=== PATIENT | male | born 1970 | race American Indian/Alaskan Native ===

== ENCOUNTER 2017-06-09 05:44 | Emergency (ER) | payer MEDICARE ==
[2017-06-09 05:56] VITALS: BMI 26.4
[2017-06-09 06:07] VITALS: RESP 18; TEMP 99
[2017-06-09] MEDS ORDERED: Morphine 4 mg/ml ISec IVP STA (06:11)
[2017-06-09] MEDS ORDERED: Sodium Chloride 0.9% 1,000 ML IV STA (06:11)
--- NOTE | 2017-06-09 06:15 | ED PDOC ---
Arrival/HPI - General Chief Complaint: Abdominal Pain Time Seen by Provider: 06/09/17 05:51 - History of Present Illness Narrative History of Present Illness (Text): 06/09/17 06:12 46 yo male, presents with abdominal pain, vomiting since last night. pt states pain is diffuse on right side. no fever, no cp, urinary changes, hematuria. pt poor historian. pt reports has "been constipated" and "difficulty passing gas" Past Medical History - Infectious Disease Hx of Infectious Diseases: None - Cardiac Hx Cardiac Disorders: No - Pulmonary Hx Respiratory Disorders: No - Neurological Hx Neurological Disorder: Yes Hx Dizziness: Yes - HEENT Hx HEENT Disorder: No - Renal Hx Renal Disorder: Yes Hx Kidney Stones: Yes - Endocrine/Metabolic Hx Endocrine Disorders: No - Hematological/Oncological Hx Blood Disorders: No - Integumentary Hx Dermatological Disorder: No - Musculoskeletal/Rheumatological Hx Musculoskeletal Disorders: No Hx Back Pain: Yes Hx Falls: No Hx Unsteady Gait: No - Gastrointestinal Hx Nausea: Yes - Genitourinary/Gynecological Hx Genitourinary Disorders: No - Psychiatric Hx Psychophysiologic Disorder: No Hx Substance Use: No - Surgical History Hx Orthopedic Surgery: Yes - Anesthesia Hx Anesthesia: Yes Hx Anesthesia Reactions: No Hx Malignant Hyperthermia: No Family/Social History - Physician Review Nursing Documentation Reviewed: Yes Family/Social History: Unknown Family HX Smoking Status: Never Smoked Hx Alcohol Use: No Hx Substance Use: No Allergies/Home Meds Allergies/Adverse Reactions: Allergies No Known Allergies Allergy (Verified 06/09/17 05:55) Home Medications: Home Meds Medication Instructions Recorded Confirmed Paroxetine HCl [Paxil] 1 tab PO DAILY 12/25/16 12/25/16 oxyCODONE [oxyCONTIN Extended 1 tab PO DAILY 12/25/16 12/25/16 Release Tab] Review of Systems - Review of Systems Constitutional: Normal Eyes: Normal ENT: Normal Respiratory: Normal Cardiovascular: Normal Gastrointestinal: Abdominal Pain, Nausea, Vomiting Genitourinary Male: Normal Musculoskeletal: Normal Skin: Normal Neurological: Normal Endocrine: Normal Hemo/Lymphatic: Normal Psychiatric: Normal Physical Exam Vital Signs Temp Pulse Resp BP Pulse Ox 06/09/17 09:00 99.0 F 91 H 18 124/80 99 06/09/17 07:36 95 H 18 112/75 97 06/09/17 06:07 99.0 F 92 H 18 136/87 100 Temperature: Afebrile Blood Pressure: Normal Pulse: Regular Respiratory Rate: Normal Appearance: Positive for: Well-Appearing, Non-Toxic, Comfortable, Other ( uncomfortable from pain) Pain Distress: None Mental Status: Positive for: Alert and Oriented X 3 - Systems Exam Head: Present: Atraumatic, Normocephalic Pupils: Present: PERRL Extroacular Muscles: Present: EOMI Conjunctiva: Present: Normal Mouth: Present: Moist Mucous Membranes Neck: Present: Normal Range of Motion Respiratory/Chest: Present: Clear to Auscultation, Good Air Exchange. No: Respiratory Distress, Accessory Muscle Use Cardiovascular: Present: Regular Rate and Rhythm, Normal S1, S2. No: Murmurs Abdomen: Present: Tenderness (right sided). No: Distention, Peritoneal Signs, Rebound, Guarding Back: Present: Normal Inspection Upper Extremity: Present: Normal Inspection. No: Cyanosis, Edema Lower Extremity: Present: Normal Inspection. No: Edema Neurological: Present: GCS=15, CN II-XII Intact, Speech Normal Skin: Present: Warm, Dry, Normal Color. No: Rashes Psychiatric: Present: Alert, Oriented x 3, Normal Insight, Normal Concentration Medical Decision Making ED Course and Treatment: 06/09/17 06:18 consider renal colic vs appendcitis vs obstruction - labs imaging pending. 06/09/17 06:50 pt endorsed pending results of imaging, urine, reassessment, and final dispo. - Lab Interpretations Lab Results: 06/09/17 06:24 06/09/17 06:24 Lab Results 06/09/17 09:00: Urine Color Yellow, Urine Appearance Sl cloudy, Urine pH 6.0, Ur Specific [place] 1.015, Urine Protein 30 H, Urine Glucose (UA) Negative, Urine Ketones 15 H, Urine Blood Large H, Urine Nitrate Negative, Urine Bilirubin Negative, Urine Urobilinogen 0.2, Ur Leukocyte Esterase Negative, Urine RBC Tntc, Urine WBC 0 - 2, Ur Epithelial Cells 0 - 2, Calcium Oxalate Crystal Few, Urine Bacteria Small 06/09/17 06:24: Sodium 143, Potassium 3.9, Chloride 106, Carbon Dioxide 25, Anion Gap 16, BUN 15, Creatinine 1.3, Est GFR ( Amer) > 60, Est GFR (Non- Af Amer) 59, Random Glucose 158 H, Calcium 9.5, Total Bilirubin 0.4, AST 22, ALT 25, Alkaline Phosphatase 151 H D, Total Protein 7.6, Albumin 3.9, Globulin 3.7, Albumin/Globulin Ratio 1.0 L, Lipase 130 06/09/17 06:24: PT 12.6 H, INR 1.09 H, APTT 31.7 06/09/17 06:24: WBC 10.4, RBC 4.73, Hgb 14.1, Hct 41.4 L, MCV 87.5 D, MCH 29.8 , MCHC 34.1, RDW 13.7, Plt Count 269, MPV 8.9, Gran % 49.3 L, Lymph % (Auto) 38.6 H, [place] % (Auto) 8.9 H, Eos % (Auto) 2.8, Baso % (Auto) 0.4, Gran # 5.14, Lymph # (Auto) 4.0 H, [place] # (Auto) 0.9 H, Eos # (Auto) 0.3, Baso # (Auto) 0.04 - RAD Interpretation Radiology Orders: 06/09/17 06:32 ABD & PELVIS IV CONTRAST ONLY [CT] Stat - Medication Orders Current Medication Orders: Discontinued Medications Sodium Chloride (Sodium Chloride 0.9%) 1,000 mls @ 1,000 mls/hr IV .Q1H STA Stop: 06/09/17 07:10 Last Admin: 06/09/17 06:26 Dose: 1,000 mls/hr eMAR Start Stop Document 06/09/17 06:26 RG (Rec: 06/09/17 06:34 RG [id number]) Intravenous Solution Start Date 06/09/17 Start Time 06:26 Ketorolac Tromethamine (Toradol) 30 mg IVP STAT STA Stop: 06/09/17 06:44 Last Admin: 06/09/17 06:49 Dose: 30 mg MAR Pain Assessment Document 06/09/17 06:49 RG (Rec: 06/09/17 06:52 RG [id number]) Pain Reassessment Is this a pain reassessment? Yes Sleep Is patient sleeping during reassessment? No Presence of Pain Presence of Pain Yes Pain Scale Used Pain Scale Used Numeric Location Left, Right or Bilateral Right Pain Location Body Site Abdomen Description Description Constant Intensity of Pain at present 10 Pain Behavior Moaning Irritability Facial Grimacing Screaming IVP Administration Document 06/09/17 06:49 RG (Rec: 06/09/17 06:52 RG [id number]) Charges for Administration # of IVP Administrations 1 Morphine Sulfate (Morphine) 4 mg IVP STAT STA Stop: 06/09/17 06:12 Last Admin: 06/09/17 06:25 Dose: 4 mg MAR Pain Assessment Document 06/09/17 06:25 RG (Rec: 06/09/17 06:34 RG [id number]) Pain Reassessment Is this a pain reassessment? Yes Sleep Is patient sleeping during reassessment? No Presence of Pain Presence of Pain Yes Location Left, Right or Bilateral Right Pain Location Body Site Abdomen Description Description Constant Intensity of Pain at present 7 Pain Behavior Moaning Rubbing Site Aggravating Factors Contant IVP Administration Document 06/09/17 06:25 RG (Rec: 06/09/17 06:34 RG [id number]) Charges for Administration # of IVP Administrations 1 Morphine Sulfate (Morphine) 6 mg IVP STAT STA Stop: 06/09/17 09:07 Last Admin: 06/09/17 10:08 Dose: 6 mg MAR Pain Assessment Document 06/09/17 10:08 LA (Rec: 06/09/17 10:09 LA [id number]) Pain Reassessment Is this a pain reassessment? No Sleep Is patient sleeping during reassessment? No Presence of Pain Presence of Pain Yes Pain Scale Used Pain Scale Used Numeric Location Left, Right or Bilateral Right Pain Location Body Site Abdomen Description Description Constant Acceptable Level of Pain 7 IVP Administration Document 06/09/17 10:08 LA (Rec: 06/09/17 10:09 LA [id number]) Charges for Administration # of IVP Administrations 1 Ondansetron HCl (Zofran Inj) 4 mg IVP STAT STA Stop: 06/09/17 06:12 Last Admin: 06/09/17 06:25 Dose: 4 mg IVP Administration Document 06/09/17 06:25 RG (Rec: 06/09/17 06:34 RG [id number]) Charges for Administration # of IVP Administrations 1 Ondansetron HCl (Zofran Inj) 4 mg IVP STAT STA Stop: 06/09/17 09:07 Last Admin: 06/09/17 10:02 Dose: 4 mg IVP Administration Document 06/09/17 10:02 LA (Rec: 06/09/17 10:02 LA [id number]) Charges for Administration # of IVP Administrations 1 Oxycodone/Acetaminophen (Percocet 5/325 Mg Tab) 1 tab PO STAT STA Stop: 06/09/17 10:04 Last Admin: 06/09/17 10:21 Dose: 1 tab MAR Pain Assessment Document 06/09/17 10:21 [facility] [place]: 06/09/17 10:21 [facility] [place] [id number][place] Pain Reassessment Is this a pain reassessment? Yes Sleep Is patient sleeping during reassessment? No Presence of Pain Presence of Pain Yes Pain Scale Used Pain Scale Used Numeric Location Pain Location Body Site Abdomen Description Intensity of Pain at present 8 Tamsulosin HCl (Flomax) 0.4 mg PO STAT STA Stop: 06/09/17 09:08 Last Admin: 06/09/17 10:02 Dose: 0.4 mg Disposition/Present on Arrival - Present on Arrival Any Indicators Present on Arrival: No History of DVT/PE: No History of Uncontrolled Diabetes: No Urinary Catheter: No History of Decub. Ulcer: No History Surgical Site Infection Following: None - Disposition Have Diagnosis and Disposition been Completed?: Yes Diagnosis: Kidney stone Disposition: HOME/ ROUTINE Disposition Time: 07:00 Condition: IMPROVED Additional Instructions: Mr Hurt, thank you for letting us take care of you today. Your provider was Dr. Last. You were treated for Kindey Stone. The emergency medical care you received today was directed at your acute symptoms. If you were prescribed any medication, please fill it and take as directed. It may take several days for your symptoms to resolve. Return to the Emergency Department if your symptoms worsen, do not improve, or if you have any other problems. Make sure you follow up with 1. your primary care doctor, Dr. Fuentes, in [place] in 1-2days 2. Urologist Dr. Hernandez or your own Urologist. 3. GI (gastrointestinal doctor) Dr. Barr for the suspicion of colon mass Please contact your doctor or call one of the physicians/clinics you have been referred to that are listed on the Patient Visit Information form that is included in your discharge packet. Bring any paperwork you were given at discharge with you along with any medications you are taking to your follow up visit. Our treatment cannot replace ongoing medical care by a primary care provider (PCP) outside of the emergency department. Thank you for allowing the [facility] team to be part of your care today. If you had an X-Ray or CT scan: A Radiologist will review the ED reading if any change in treatment is needed we will contact you. If you had a blood, urine, or wound culture: It will take several days for the results, if any change in treatment is needed we will contact you. If you had an STI test: It will take 48 hours for the results. Please call after 1 week if you have not heard back. Prescriptions: Docusate [Colace] 100 mg PO BID #60 cap Ibuprofen [Motrin] 600 mg PO Q6 PRN #30 tab PRN Reason: Pain, Moderate (4-7) oxyCODONE/Acetaminophen [Percocet 5/325 mg Tab] 1 ea PO Q4 PRN #20 tab PRN Reason: Pain, Moderate (4-7) Tamsulosin [Flomax] 0.4 mg PO DAILY #20 cap Referrals: Nino Hernandez MD [Staff Provider] - Follow up with primary Edvin Barr MD [Staff Provider] - Follow up with primary Forms: [employer] (Grenadian), WORK NOTE
[2017-06-09 06:36] LABS: BASO # 0.04 K/mm3 (0.0-2.0); BASO % 0.4 % (0.0-3.0); EOS # 0.3 (0.0-0.7); EOS % 2.8 % (1.5-5.0); GRAN # 5.14 (1.4-6.5); GRAN % 49.3 % (50.0-68.0); HEMOGLOBIN 14.1 g/dL (14.0-18.0); LYMPH % 38.6 % (22.0-35.0); MEAN CORPUSCULAR HEMOGLOBIN 29.8 pg (25.0-35.0); MEAN CORPUSCULAR HGB CONC 34.1 g/dl (31.0-37.0); MEAN PLATELET VOLUME 8.9 fl (7.0-11.0); MONO # 0.9 (0.1-0.6); MONO % 8.9 % (1.0-6.0); RBC 4.73 10^6/uL (3.5-6.1); RED CELL DISTRIBUTION WIDTH 13.7 % (11.5-14.5); WHITE BLOOD COUNT 10.4 10^3/ul (4.5-11.0)
[2017-06-09 06:47] LABS: ALBUMIN 3.9 g/dL (3.0-4.8); ALT/SGPT 25 U/L (7-56); AST/SGOT 22 U/L (17-59); BLOOD UREA NITROGEN 15 mg/dL (7-21); CALCIUM 9.5 mg/dL (8.4-10.5); GFR AFRICAN-AMERICAN > 60; GFR NON-AFRICAN AMERICAN 59; LIPASE 130 U/L (23-300)
[2017-06-09 06:49] LABS: MEAN CELL VOLUME 87.5 fl (80.0-105.0)
[2017-06-09 06:55] LABS: INR 1.09 (0.93-1.08); PROTHROMBIN TIME 12.6 SECONDS (9.4-12.5)
[2017-06-09] MEDS ORDERED: Iohexol 350 MG/100 ML VIAL ONE (07:00)
[2017-06-09 07:05] LABS: PARTIAL THROMBOPLASTIN TIME 31.7 Seconds (25.1-36.5)
--- NOTE | 2017-06-09 07:28 | ED PDOC ---
Physical Exam Vital Signs Reviewed: Yes Vital Signs Temp Pulse Resp BP Pulse Ox 06/09/17 07:36 95 H 18 112/75 97 06/09/17 06:07 99.0 F 92 H 18 136/87 100 Temperature: Afebrile Blood Pressure: Normal Pulse: Regular Respiratory Rate: Normal Appearance: Positive for: Well-Appearing Pain Distress: Moderate - Systems Exam Abdomen: No: Tenderness, Distention Back: Present: CVA Tenderness Medical Decision Making ED Course and Treatment: 06/09/17 07:05 Patient transferred to ut by Dr. Sabillon. Patient awaiting follow-up Urinalysis and CT, reevaluation and disposition. 06/09/2017 08:32 Abd/Pelvis CT IMPRESSION: 1. Minimal right hydronephrosis due to a 2 mm right UVJ stone. 2. 4.6 x 4.1 x 4.7 cm solid questionable mass or gasless stool in the cecum, no present on the prior study. Correlation with colonoscopy or repeat abdomen and pelvis CT with oral and rectal contrast. Dictator: Traci Kline MD 06/09/17 09:06 Patient is currently uncomfortable and in pain at this time. Pain medications to be ordered for patient. 06/09/17 10:26 Accession No. : [id number] Creator : Bill Thompson MD PROCEDURE: CT Abdomen and Pelvis with contrast IMPRESSION: Likely recent expulsion of 2 mm calculus into the urinary bladder with limited residual dilatation the right renal pelvis and medial right perinephric reaction identified currently. Nonobstructing intrarenal calculi identified bilaterally otherwise. Borderline intrahepatic biliary dilatation without radiodense choledocholithiasis or extrahepatic biliary tree dilatation evident. The gallbladder appears unremarkable. Stable 4 mm subpleural nodule left lower lobe for which follow-up low-dose screening chest CT advised in 1 year to demonstrate stability. Patient's pain improved. He is able to pass stool in the ED. CT results discussed with Dr. Kline and she's unsure if the mass is a gasless stool in cecum or a mass. Dr. Pisano also read the CT and he states it's most likely stool but also to make sure he follows up with a colonscopy. Rx: colace I discussed the CT results with the Urologist Dr. Hernandez who recommends pain control, flomax and follow up with his office. Patient states he has his own urologist. Patient was explained CT results in detail. He was informed of the lung nodule, kidney stone and questionable solid mass vs gasless stool in cecum. He was told that the nodule and questional mass could be cancerous so it' s importance to follow up with the imagining and colonscopy in 1-2days. He needs to make sure to see a GI specialist for a colonscopy in 1-2days. Patient was given rx for percocoet, flomax and motrin. He understands the importance of follow up with GI Dr. Barr, Urology Dr. Hernandez and primary care doctor Dr. Wheeler (prosperity). Advised to return to the ED if he has trouble passing stool, bleeding stool, worsening symoptoms or any other concern. 06/09/17 10:37 - Lab Interpretations Lab Results: 06/09/17 06:24 06/09/17 06:24 Lab Results 06/09/17 09:00: Urine Color Yellow, Urine Appearance Sl cloudy, Urine pH 6.0, Ur Specific [place] 1.015, Urine Protein 30 H, Urine Glucose (UA) Negative, Urine Ketones 15 H, Urine Blood Large H, Urine Nitrate Negative, Urine Bilirubin Negative, Urine Urobilinogen 0.2, Ur Leukocyte Esterase Negative, Urine RBC Tntc, Urine WBC 0 - 2, Ur Epithelial Cells 0 - 2, Calcium Oxalate Crystal Few, Urine Bacteria Small 06/09/17 06:24: Sodium 143, Potassium 3.9, Chloride 106, Carbon Dioxide 25, Anion Gap 16, BUN 15, Creatinine 1.3, Est GFR ( Amer) > 60, Est GFR (Non- Af Amer) 59, Random Glucose 158 H, Calcium 9.5, Total Bilirubin 0.4, AST 22, ALT 25, Alkaline Phosphatase 151 H D, Total Protein 7.6, Albumin 3.9, Globulin 3.7, Albumin/Globulin Ratio 1.0 L, Lipase 130 06/09/17 06:24: PT 12.6 H, INR 1.09 H, APTT 31.7 06/09/17 06:24: WBC 10.4, RBC 4.73, Hgb 14.1, Hct 41.4 L, MCV 87.5 D, MCH 29.8 , MCHC 34.1, RDW 13.7, Plt Count 269, MPV 8.9, Gran % 49.3 L, Lymph % (Auto) 38.6 H, [place] % (Auto) 8.9 H, Eos % (Auto) 2.8, Baso % (Auto) 0.4, Gran # 5.14, Lymph # (Auto) 4.0 H, [place] # (Auto) 0.9 H, Eos # (Auto) 0.3, Baso # (Auto) 0.04 - RAD Interpretation Radiology Orders: 06/09/17 06:32 ABD & PELVIS IV CONTRAST ONLY [CT] Stat - Medication Orders Current Medication Orders: Discontinued Medications Sodium Chloride (Sodium Chloride 0.9%) 1,000 mls @ 1,000 mls/hr IV .Q1H STA Stop: 06/09/17 07:10 Last Admin: 06/09/17 06:26 Dose: 1,000 mls/hr eMAR Start Stop Document 06/09/17 06:26 RG (Rec: 06/09/17 06:34 RG [id number]) Intravenous Solution Start Date 06/09/17 Start Time 06:26 Ketorolac Tromethamine (Toradol) 30 mg IVP STAT STA Stop: 06/09/17 06:44 Last Admin: 06/09/17 06:49 Dose: 30 mg MAR Pain Assessment Document 06/09/17 06:49 RG (Rec: 06/09/17 06:52 RG [id number]) Pain Reassessment Is this a pain reassessment? Yes Sleep Is patient sleeping during reassessment? No Presence of Pain Presence of Pain Yes Pain Scale Used Pain Scale Used Numeric Location Left, Right or Bilateral Right Pain Location Body Site Abdomen Description Description Constant Intensity of Pain at present 10 Pain Behavior Moaning Irritability Facial Grimacing Screaming IVP Administration Document 06/09/17 06:49 RG (Rec: 06/09/17 06:52 RG [id number]) Charges for Administration # of IVP Administrations 1 Morphine Sulfate (Morphine) 4 mg IVP STAT STA Stop: 06/09/17 06:12 Last Admin: 06/09/17 06:25 Dose: 4 mg MAR Pain Assessment Document 06/09/17 06:25 RG (Rec: 06/09/17 06:34 RG [id number]) Pain Reassessment Is this a pain reassessment? Yes Sleep Is patient sleeping during reassessment? No Presence of Pain Presence of Pain Yes Location Left, Right or Bilateral Right Pain Location Body Site Abdomen Description Description Constant Intensity of Pain at present 7 Pain Behavior Moaning Rubbing Site Aggravating Factors Contant IVP Administration Document 06/09/17 06:25 RG (Rec: 06/09/17 06:34 RG [id number]) Charges for Administration # of IVP Administrations 1 Morphine Sulfate (Morphine) 6 mg IVP STAT STA Stop: 06/09/17 09:07 Last Admin: 06/09/17 10:08 Dose: 6 mg MAR Pain Assessment Document 06/09/17 10:08 LA (Rec: 06/09/17 10:09 LA [id number]) Pain Reassessment Is this a pain reassessment? No Sleep Is patient sleeping during reassessment? No Presence of Pain Presence of Pain Yes Pain Scale Used Pain Scale Used Numeric Location Left, Right or Bilateral Right Pain Location Body Site Abdomen Description Description Constant Acceptable Level of Pain 7 IVP Administration Document 06/09/17 10:08 LA (Rec: 06/09/17 10:09 LA [id number]) Charges for Administration # of IVP Administrations 1 Ondansetron HCl (Zofran Inj) 4 mg IVP STAT STA Stop: 06/09/17 06:12 Last Admin: 06/09/17 06:25 Dose: 4 mg IVP Administration Document 06/09/17 06:25 RG (Rec: 06/09/17 06:34 RG [id number]) Charges for Administration # of IVP Administrations 1 Ondansetron HCl (Zofran Inj) 4 mg IVP STAT STA Stop: 06/09/17 09:07 Last Admin: 06/09/17 10:02 Dose: 4 mg IVP Administration Document 06/09/17 10:02 LA (Rec: 06/09/17 10:02 LA [id number]) Charges for Administration # of IVP Administrations 1 Oxycodone/Acetaminophen (Percocet 5/325 Mg Tab) 1 tab PO STAT STA Stop: 06/09/17 10:04 Last Admin: 06/09/17 10:21 Dose: 1 tab MAR Pain Assessment Document 06/09/17 10:21 [facility] (Rec: 06/09/17 10:21 [facility] [id number]) Pain Reassessment Is this a pain reassessment? Yes Sleep Is patient sleeping during reassessment? No Presence of Pain Presence of Pain Yes Pain Scale Used Pain Scale Used Numeric Location Pain Location Body Site Abdomen Description Intensity of Pain at present 8 Tamsulosin HCl (Flomax) 0.4 mg PO STAT STA Stop: 06/09/17 09:08 Last Admin: 06/09/17 10:02 Dose: 0.4 mg - Scribe Statement The provider has reviewed the documentation as recorded by the Dejan Almaraz Provider Scribe Attestation: All medical record entries made by the Scribe were at my direction and personally dictated by me. I have reviewed the chart and agree that the record accurately reflects my personal performance of the history, physical exam, medical decision making, and the department course for this patient. I have also personally directed, reviewed, and agree with the discharge instructions and disposition. Disposition/Present on Arrival - Present on Arrival Any Indicators Present on Arrival: No History of DVT/PE: No History of Uncontrolled Diabetes: No Urinary Catheter: No History of Decub. Ulcer: No History Surgical Site Infection Following: None - Disposition Have Diagnosis and Disposition been Completed?: Yes Diagnosis: Kidney stone Disposition: HOME/ ROUTINE Disposition Time: 10:38 Patient Plan: Discharge Patient Problems: Current Active Problems Problem Status Onset Kidney stone Acute Condition: IMPROVED Additional Instructions: Mr Hurt, thank you for letting us take care of you today. Your provider was Dr. Last. You were treated for Kindey Stone. The emergency medical care you received today was directed at your acute symptoms. If you were prescribed any medication, please fill it and take as directed. It may take several days for your symptoms to resolve. Return to the Emergency Department if your symptoms worsen, do not improve, or if you have any other problems. Make sure you follow up with 1. your primary care doctor, Dr. Fuentes, in [place] in 1-2days 2. Urologist Dr. Hernandez or your own Urologist. 3. GI (gastrointestinal doctor) Dr. Barr for the suspicion of colon mass Please contact your doctor or call one of the physicians/clinics you have been referred to that are listed on the Patient Visit Information form that is included in your discharge packet. Bring any paperwork you were given at discharge with you along with any medications you are taking to your follow up visit. Our treatment cannot replace ongoing medical care by a primary care provider (PCP) outside of the emergency department. Thank you for allowing the [facility] team to be part of your care today. If you had an X-Ray or CT scan: A Radiologist will review the ED reading if any change in treatment is needed we will contact you. If you had a blood, urine, or wound culture: It will take several days for the results, if any change in treatment is needed we will contact you. If you had an STI test: It will take 48 hours for the results. Please call after 1 week if you have not heard back. Prescriptions: Docusate [Colace] 100 mg PO BID #60 cap Ibuprofen [Motrin] 600 mg PO Q6 PRN #30 tab PRN Reason: Pain, Moderate (4-7) oxyCODONE/Acetaminophen [Percocet 5/325 mg Tab] 1 ea PO Q4 PRN #20 tab PRN Reason: Pain, Moderate (4-7) Tamsulosin [Flomax] 0.4 mg PO DAILY #20 cap Referrals: Nino Hernandez MD [Staff Provider] - Follow up with primary Edvin Barr MD [Staff Provider] - Follow up with primary Forms: [employer] (Albanian), WORK NOTE
--- NOTE | 2017-06-09 08:33 | CT ---
EXAM: CT Abdomen and Pelvis With Intravenous Contrast CLINICAL HISTORY: 46 years old, male; Pain; Abdominal pain; Localized; Right lower quadrant (rlq); Additional info: Right sided abd pain TECHNIQUE: Axial computed tomography images of the abdomen and pelvis with intravenous contrast. All CT scans at this facility use one or more dose reduction techniques, viz.: automated exposure control; ma/kV adjustment per patient size (including targeted exams where dose is matched to indication; i.e. head); or iterative reconstruction technique. Coronal and sagittal reformatted images were created and reviewed. CONTRAST: 100 mL of omnipque 350 administered intravenously. COMPARISON: CT - ABDOMEN,PELVIS W/WO CONTRAST 2015-03-14 10:14 FINDINGS: Lung bases: Minimal bilateral dependent atelectasis. 2 mm incidental subpleural pulmonary nodule at the left lower lobe, unchanged. Bleb at the left lower lobe, unchanged. ABDOMEN: Liver: Unremarkable. No mass. Gallbladder and bile ducts: Unremarkable. No calcified stones. No ductal dilation. Pancreas: Unremarkable. No mass. No ductal dilation. Spleen: Unremarkable. No splenomegaly. Adrenals: Unremarkable. No mass. Kidneys and ureters: Minimal right hydronephrosis due to a 2 mm right UVJ stone. New 3 mm nonobstructing calcification at the lower pole of the right kidney. Right extrarenal pelvis. Stomach and bowel: 4.6 x 4.1 x 4.7 cm solid questionable mass or gasless stool in the cecum, not present on the prior study. Appendix: Normal appendix. PELVIS: Bladder: Nondistended urinary bladder. Reproductive: Slightly heterogeneous prostate gland which measures 4.9 cm in diameter. ABDOMEN and PELVIS: Intraperitoneal space: Unremarkable. No free air. No significant fluid collection. Bones/joints: No acute fracture. No dislocation. Soft tissues: Unremarkable. Vasculature: Unremarkable. No abdominal aortic aneurysm. Lymph nodes: Few subcentimeter inguinal lymph nodes. IMPRESSION: 1. Minimal right hydronephrosis due to a 2 mm right UVJ stone. 2. 4.6 x 4.1 x 4.7 cm solid questionable mass or gasless stool in the cecum, not present on the prior study. Correlation with colonoscopy or repeat abdomen and pelvis CT with oral and rectal contrast.
[2017-06-09 09:15] LABS: URINE BILIRUBIN NEGATIVE (NEGATIVE); URINE BLOOD LARGE (NEGATIVE); URINE GLUCOSE (UA) NEGATIVE (NEGATIVE); URINE LEUKOCYTE ESTERASE NEGATIVE Leu/uL (NEGATIVE); URINE PROTEIN 30 mg/dL (<30 mg/dL); URINE UROBILINOGEN 0.2 E.U./dL (<1 E.U./dL)
[2017-06-09 09:19] LABS: URINE APPEARANCE SL CLOUDY (CLEAR); URINE COLOR YELLOW (YELLOW)
[2017-06-09 09:26] LABS: URINE RBC TNTC /hpf (0-2); URINE WBC 0 - 2 /hpf (0-6)
[2017-06-09 09:27] LABS: URINE BACTERIA SMALL (NEG); URINE EPITHELIAL CELLS 0 - 2 /hpf (0-5)
[2017-06-09 09:29] LABS: URINE CALCIUM OXALATE CRYSTALS FEW /hpf
[2017-06-09] MEDS ORDERED: Oxycodone/Acetaminophen 5/325 mg Tab PO STA (10:03)
[2017-06-09 10:42] VITALS: BP 124/80; PULSE 91; O2SAT 99
== END 2017-06-09 10:42 | disposition home or self-care (01) ==
LOC: ED 05:44
DX: N20.0 Calculus of kidney (principal)
CPT/HCPCS: 74177; 80053; 81001; 83690; 85025; 85610; 85730; 96374; 96375; 96376; 99285; J1885; J2270; J2405; J7040; Q9967

== ENCOUNTER 2018-03-08 20:52 | Observation (INO) | payer MEDICARE, OTHER ==
[2018-03-08 20:57] VITALS: BMI 25.7
--- NOTE | 2018-03-08 21:01 | ED PDOC ---
Arrival/HPI - General Chief Complaint: Male Genitourinary Time Seen by Provider: 03/08/18 20:56 Historian: Patient - History of Present Illness Narrative History of Present Illness (Text): 03/08/18 20:59 Lj Hurt is a 47 year old male, whose past medical history includes prostate cancer s/p robotic prostatectomy, who presents to the Emergency department complaining of urinary retention. Patient states he has been unable to void his urine for the past 2 days. Patient reports associated suprapubic pain. Patient reports he called his urologist, who he states advised him to come to the Emergency room. Patient denies any fever, chills, nausea, vomiting, back pain, or any other complaints. Symptom Onset: Gradual Symptom Course: Unchanged Activities at Onset: Light Context: Home Past Medical History - Provider Review Nursing Documentation Reviewed: Yes - Infectious Disease Hx of Infectious Diseases: None - Cardiac Hx Cardiac Disorders: No - Pulmonary Hx Respiratory Disorders: No - Neurological Hx Neurological Disorder: Yes Hx Dizziness: Yes - HEENT Hx HEENT Disorder: No - Renal Hx Renal Disorder: Yes Hx Kidney Stones: Yes - Endocrine/Metabolic Hx Endocrine Disorders: No - Hematological/Oncological Hx Blood Disorders: No - Integumentary Hx Dermatological Disorder: No - Musculoskeletal/Rheumatological Hx Musculoskeletal Disorders: No Hx Falls: No - Gastrointestinal Hx Gastrointestinal Disorders: Yes Hx Nausea: Yes Other/Comment: prostate problems - Genitourinary/Gynecological Hx Genitourinary Disorders: No - Psychiatric Hx Substance Use: No - Surgical History Hx Orthopedic Surgery: Yes Other/Comment: prostatectomy - Anesthesia Hx Anesthesia: Yes Hx Anesthesia Reactions: No Hx Malignant Hyperthermia: No Family/Social History - Physician Review Nursing Documentation Reviewed: Yes Family/Social History: Unknown Family HX Smoking Status: Never Smoked Hx Alcohol Use: No Hx Substance Use: No Allergies/Home Meds Allergies/Adverse Reactions: Allergies No Known Allergies Allergy (Verified 03/08/18 21:03) Home Medications: Home Meds Medication Instructions Recorded Confirmed Atorvastatin [Lipitor] 10 mg PO DAILY 12/30/17 12/30/17 Docusate Sodium [Dulcolax Stool 100 mg PO DAILY 12/30/17 12/30/17 Softener] Furosemide [Lasix] 20 mg PO DAILY 12/30/17 12/30/17 Lactulose 10 gm PO DAILY 10/25/18 10/25/18 Review of Systems - Physician Review All systems were reviewed & negative as marked: Yes - Review of Systems Constitutional: Normal. absent: Fevers Eyes: Normal ENT: Normal Respiratory: Normal. absent: SOB, Cough Cardiovascular: Normal. absent: Chest Pain Gastrointestinal: Abdominal Pain. absent: Diarrhea, Vomiting Genitourinary Male: Urinary Output Changes (+urinary retention) Musculoskeletal: Normal. absent: Back Pain, Neck Pain Skin: Normal. absent: Rash Neurological: Normal. absent: Headache, Dizziness Endocrine: Normal Hemo/Lymphatic: Normal Psychiatric: Normal Physical Exam Vital Signs Reviewed: Yes Temperature: Afebrile Blood Pressure: Hypertensive Pulse: Regular Respiratory Rate: Normal Appearance: Positive for: Well-Appearing, Non-Toxic, Comfortable Pain Distress: None Mental Status: Positive for: Alert and Oriented X 3 - Systems Exam Head: Present: Atraumatic, Normocephalic Pupils: Present: PERRL Extroacular Muscles: Present: EOMI Conjunctiva: Present: Normal Mouth: Present: Moist Mucous Membranes Neck: Present: Normal Range of Motion Respiratory/Chest: Present: Clear to Auscultation, Good Air Exchange. No: Respiratory Distress, Accessory Muscle Use Cardiovascular: Present: Regular Rate and Rhythm, Normal S1, S2. No: Murmurs Abdomen: Present: Tenderness (Suprapubic discomfort). No: Distention, Peritoneal Signs Back: Present: Normal Inspection Upper Extremity: Present: Normal Inspection. No: Cyanosis, Edema Lower Extremity: Present: Normal Inspection. No: Edema Neurological: Present: GCS=15, CN II-XII Intact, Speech Normal Skin: Present: Warm, Dry, Normal Color. No: Rashes Psychiatric: Present: Alert, Oriented x 3, Normal Insight, Normal Concentration Medical Decision Making ED Course and Treatment: 03/08/18 20:55 Impression: 47 year old male complaining of Plan: -- Labs -- Urinalysis -- Morphine -- Reassess and disposition Prior Visits: Notes and results from previous visits were reviewed. Progress Notes: 03/08/18 20:[address] Garza, urologist, states he is not coming tonight to perform any procedures. States he will come in tomorrow morning. 03/08/18 22:10 Multiple attempts made at catheter insertion. Bladder Scan shows 360cc present. Spoke again with Dr. Garza, who will come to Emergency department to evaluate pt. 03/08/18 22:59 Dr. Garza present in Emergency department to perform suprapubic catheter insertion. 03/08/18 23:16 Suprapubic catheter placed by Dr. Garza. Pt will be placed under observation under Dr. Garza's service for definitive surgical care. - Scribe Statement The provider has reviewed the documentation as recorded by the Marinibsandra Moffett Provider Scribe Attestation: All medical record entries made by the Scribe were at my direction and personally dictated by me. I have reviewed the chart and agree that the record accurately reflects my personal performance of the history, physical exam, medical decision making, and the department course for this patient. I have also personally directed, reviewed, and agree with the discharge instructions and disposition. Disposition/Present on Arrival - Present on Arrival Any Indicators Present on Arrival: No History of DVT/PE: No History of Uncontrolled Diabetes: No Urinary Catheter: No History of Decub. Ulcer: No History Surgical Site Infection Following: None - Disposition Have Diagnosis and Disposition been Completed?: Yes Diagnosis: Urinary retention, Urethral stricture Disposition: HOSPITALIZED Disposition Time: 23:15 Patient Plan: Admission Patient Problems: Current Active Problems Problem Status Onset Urethral stricture Acute Urinary retention Acute Condition: STABLE Referrals: Herb Garza MD [Primary Care Provider] - Follow up with primary Forms: [facility])
[2018-03-08 21:40] LABS: ALB/GLOB RATIO 1.1 (1.1-1.8); ALBUMIN 4.7 g/dL (3.0-4.8); ALT/SGPT 22 U/L (7-56); AST/SGOT 27 U/L (17-59); BLOOD UREA NITROGEN 10 mg/dL (7-21); CALCIUM 9.5 mg/dL (8.4-10.5); GFR NON-AFRICAN AMERICAN > 60
[2018-03-08 21:50] LABS: HEMOGLOBIN 14.4 g/dL (14.0-18.0); MEAN CELL VOLUME 86.9 fl (80.0-105.0); MEAN CORPUSCULAR HEMOGLOBIN 28.7 pg (25.0-35.0); MEAN PLATELET VOLUME 9.2 fl (7.0-11.0); RBC 5.02 10^6/uL (3.5-6.1); RED CELL DISTRIBUTION WIDTH 14.2 % (11.5-14.5); WHITE BLOOD COUNT 12.6 10^3/uL (4.5-11.0)
[2018-03-08] MEDS ORDERED: Lidocaine 2% Jelly (Uro-Jet) TOP ONE (22:05)
[2018-03-08 22:33] LABS: URINE BILIRUBIN NEGATIVE (NEGATIVE); URINE BLOOD MODERATE (NEGATIVE); URINE GLUCOSE (UA) NEGATIVE (NEGATIVE); URINE LEUKOCYTE ESTERASE TRACE Leu/uL (NEGATIVE); URINE PROTEIN 30 mg/dL (<30 mg/dL); URINE UROBILINOGEN 0.2 E.U./dL (<1 E.U./dL)
[2018-03-08 22:34] LABS: URINE APPEARANCE CLEAR (CLEAR); URINE COLOR YELLOW (YELLOW)
[2018-03-08] MEDS ORDERED: cefTRIAXone 1 gm 1 GM/100 ML BAG IV STA (22:41)
[2018-03-08 22:46] LABS: URINE BACTERIA TRACE /hpf
[2018-03-08] MEDS ORDERED: Oxycodone/Acetaminophen 5/325 mg Tab PO PRN (23:17)
[2018-03-09 02:45] VITALS: RESP 20
[2018-03-09] MEDS ORDERED: Midazolam 2 MG/2 ML VIAL ONE (09:34)
[2018-03-09] MEDS ORDERED: Propofol 10 mg/ml Inj (20 ML) ONE (09:34)
[2018-03-09] MEDS ORDERED: Lidocaine PF 2% (5 ml) Inj (For Cardiac Arrhy) ONE (09:35)
[2018-03-09] MEDS ORDERED: cefTRIAXone 1 GM in NS 100 ML BAG IVPB ONE (10:15)
[2018-03-09] MEDS ORDERED: Iohexol 240 (50 ml) ONE (10:23)
[2018-03-09] MEDS ORDERED: cefTRIAXone (Rocephin) 1 gm Inj ONE (10:23)
[2018-03-09] MEDS ORDERED: Gentamicin 80 mg/2mL Inj. ONE (11:41)
--- NOTE | 2018-03-09 11:52 | RAD ---
Date of service: 03/09/2018 PROCEDURE: Fluoroscopy up to 1 hr. HISTORY: R/O OBSTRUCTION COMPARISON: None TECHNIQUE: Standard protocol for this study/examination. FINDINGS: Total fluoroscopic time (continuous mode) utilized during the procedure 4.0 seconds. Total exam DLP: 1.09 (mGy). IMPRESSION: Less than 1 hr fluoroscopic assistance provided during performance of the procedure.
--- NOTE | 2018-03-09 12:11 | PN ---
DATE: 03/09/2018 UROLOGY IMMEDIATE POSTOP NOTE PREOPERATIVE DIAGNOSES: Hematuria, urinary retention, prostate cancer. POSTOPERATIVE DIAGNOSIS: . PROCEDURE: Cystoscopy, general and a cystogram. See the operative note for the details of history and physical . There are no complications. The patient is in the recovery room in stable condition. The indications, history and physical, see all the details in the chart. Refer the details. This is an immediate postop note. The patient currently is off the cystostomy tube and a Morrissey catheter. He is in stable condition. Vital signs are within normal limits. PLAN: To maintain the patient on both antibiotics for now and then further plans will follow. Serjio Garza MD
[2018-03-09] MEDS ORDERED: Morphine 4 mg/ml ISec IVP PRN (16:51)
--- NOTE | 2018-03-09 16:52 | CP.PCM.CON ---
<Virgil Mejia - Last Filed: 03/10/18 04:50> History of Present Illness - History of Present Illness History of Present Illness: Patient is a 47 M with history of prostate cancer s/p prostatectomy presenting with complaints of urinary retention (third episode since procedure). Patient states he was unable to void for 3-4- days which was causing him to have suprapubic pain. Patient discussed his case with his urologist who then advised him to go to the emergency department. Due to multiple failed attempts at placing a catheter, Urologist came to perform suprapubic catheter insertion. 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 absent: Dyspnea, Wheezing - Gastrointestinal Gastrointestinal: absent: Diarrhea - Genitourinary Genitourinary: Hematuria - Musculoskeletal Musculoskeletal: absent: Back Pain - Neurological Neurological: absent: Confusion, Dizziness - Psychiatric Psychiatric: absent: Anxiety Past Patient History - Infectious Disease Hx of Infectious Diseases: None - Past Medical History & Family History Past Medical History?: Yes - Past Social History Smoking Status: Never Smoked - CARDIAC Hx Pacemaker: Yes - PULMONARY Hx Respiratory Disorders: No Hx Asthma: No Hx Bronchitis: No Hx Chronic Obstructive Pulmonary Disease (COPD): No Hx Emphysema: No Hx Pneumonia: No Hx Respiratory Aspiration: No Hx Respiratory Tract Infection: No Hx Sleep Apnea: No Hx Tuberculosis: No - NEUROLOGICAL Hx Neurological Disorder: No Hx Alzheimer's Disease: No HX Cerebrovascular Accident: No Hx Dementia: No Hx Dizziness: No Hx Meningitis: No Hx Migraine: No Hx Parkinson's Disease: No Hx Seizures: No Hx Transient Ischemic Attacks (TIA): No - HEENT Hx HEENT Problems: No Hx Blind: No Hx Cataracts: No Hx Deafness: No Hx Difficulty Chewing: No Hx Epistaxis: No Hx Glaucoma: No Hx Macular Degeneration: No - RENAL Hx Chronic Kidney Disease: No Hx Dialysis: No Hx Kidney Stones: No Hx Neurogenic Bladder: No Hx Pyelonephritis: No Hx Renal (Kidney) Cancer: No Hx Renal Failure: No - ENDOCRINE/METABOLIC Hx Endocrine Disorders: No Hx Adrenal Cancer: No Hx Diabetes Insipidus: No Hx Diabetes Mellitus Type 1: No Hx Diabetes Mellitus Type 2: No Hx Hyperthyroidism: No Hx Hypothyroidism: No Hx Systemic Lupus Erythematosus: No - HEMATOLOGICAL/ONCOLOGICAL Hx Blood Disorders: No Hx AIDS: No Hx Anemia: No Hx Cancer: No Hx Chemotherapy: No Hx Cirrhosis: No Hx Hemophilia: No Hx Hepatitis A: No Hx Hepatitis B: No Hx Hepatitis C: No Hx Human Immunodeficiency Virus (HIV): No Hx Metastesis: No Hx Shingles: No Hx Sickle Cell Disease: No Hx Unexplained Bleeding: No - INTEGUMENTARY Hx Dermatological Problems: No Hx Basil Cell: No Hx Eczema: No Hx Melanoma: No Hx Psoriasis: No Hx Squamous Cell: No - MUSCULOSKELETAL/RHEUMATOLOGICAL Hx Musculoskeletal Disorders: No - GASTROINTESTINAL Hx Gastrointestinal Disorders: No Hx Colostomy: No Hx Crohn's Disease: No Hx Diverticulitis: No Hx Gall Bladder Disease: No Hx Gastroesophageal Reflux: No Hx Ileostomy: No Hx Liver Failure: No Hx Pancreatitis: No HX Swallowing Problems: No Hx Ulcer: No - GENITOURINARY/GYNECOLOGICAL Hx Hematuria: No Hx Incontinence: No Hx Prostate Problems: Yes Hx Sexually Transmitted Disorders: No Hx Urinary Tract Infection: No - PSYCHIATRIC Hx Emotional Abuse: No Hx Physical Abuse: No Hx Substance Use: No - SURGICAL HISTORY Hx Surgeries: Yes - ANESTHESIA Hx Anesthesia Reactions: No Hx Malignant Hyperthermia: No Meds Allergies/Adverse Reactions: Allergies Allergy/AdvReac Type Severity Reaction Status Date / Time No Known Allergies Allergy Verified 03/13/18 10:28 Physical Exam - Constitutional Appears: Non-toxic, No Acute Distress - Head Exam Head Exam: ATRAUMATIC, NORMAL INSPECTION, NORMOCEPHALIC - Eye Exam Eye Exam: EOMI, Normal appearance - ENT Exam ENT Exam: Mucous Membranes Moist, Normal Exam - Neck Exam Neck exam: Positive for: Normal Inspection - Respiratory Exam Respiratory Exam: Clear to Auscultation Bilateral, NORMAL BREATHING PATTERN - Cardiovascular Exam Cardiovascular Exam: REGULAR RHYTHM, +S1, +S2 - GI/Abdominal Exam GI & Abdominal Exam: Normal Bowel Sounds, Soft - Neurological Exam Neurological exam: Alert, CN II-XII Intact, Oriented x3 - Psychiatric Exam Psychiatric exam: Normal Affect, Normal Mood - Skin Skin Exam: Dry, Intact, Normal Color Results - Vital Signs Recent Vital Signs: Last Vital Signs Temp 98.2 F 03/09/18 08:25 Pulse 77 03/09/18 08:25 Resp 20 03/09/18 08:25 BP 124/65 03/09/18 08:25 Pulse Ox 100 03/09/18 08:25 - Labs Result Diagrams: 03/08/18 21:21 03/08/18 21:21 Labs: Laboratory Results - last 24 hr 03/08/18 03/08/18 03/08/18 21:21 21:21 22:27 WBC 12.6 H RBC 5.02 Hgb 14.4 Hct 43.6 MCV 86.9 MCH 28.7 MCHC 33.0 RDW 14.2 Plt Count 323 MPV 9.2 Sodium 140 Potassium 3.5 L Chloride 106 Carbon Dioxide 23 Anion Gap 15 BUN 10 Creatinine 0.9 Est GFR ( Amer) > 60 Est GFR (Non-Af Amer) > 60 Random Glucose 115 H Calcium 9.5 Total Bilirubin 0.5 AST 27 ALT 22 Alkaline Phosphatase 205 H D Total Protein 8.7 H Albumin 4.7 Globulin 4.1 Albumin/Globulin Ratio 1.1 Urine Color Yellow Urine Appearance Clear Urine pH 7.0 Ur Specific [place] 1.025 Urine Protein 30 H Urine Glucose (UA) Negative Urine Ketones Trace H Urine Blood Moderate H Urine Nitrate Negative Urine Bilirubin Negative Urine Urobilinogen 0.2 Ur Leukocyte Esterase Trace H Urine RBC 1 - 3 H Urine WBC 1 - 3 Ur Epithelial Cells 3 - 4 Urine Bacteria Trace Assessment & Plan - Assessment and Plan (Free Text) Assessment: Patient is a 47 M with history of prostate cancer s/p prostatectomy presenting with complaints of urinary retention (third episode since procedure). Patient states he was unable to void for 3-4- days which was causing him to have suprapubic pain. Patient discussed his case with his urologist who then advised him to go to the emergency department. Due to multiple failed attempts at placing a catheter, Urologist came to perform suprapubic catheter insertion. Plan: -Continue with management as per Urology -Home medications continued which have been verified with patient's pharmacy ([address] [facility]) -SCDs for DVT prophylaxis, Protonix for GI prophylaxis -Morphine for pain control <Hammad Gonzalez - Last Filed: 03/14/18 18:07> Results - Vital Signs Recent Vital Signs: Last Vital Signs Temp 98.1 F 03/10/18 14:00 Pulse 73 03/10/18 14:00 Resp 20 03/10/18 14:00 BP 117/75 03/10/18 14:00 Pulse Ox 99 03/10/18 14:00 - Labs Result Diagrams: 03/10/18 07:20 03/10/18 07:20 Attending/Attestation - Attestation I have personally seen and examined this patient.: Yes I have fully participated in the care of the patient.: Yes I have reviewed all pertinent clinical information: Yes Notes (Text): 47 y/o M with PMH of prostate CA s/p prostatectomy, HLD admitted for urinary retention. Pt is s/p cystoscopy, with insertion of suprapubic catheter and indwelling baldwin catheter. Medicine team consulted for medical management. resume pts statin meds monitor urine output an Cr urinary retention to be managed by primary team.
[2018-03-09] MEDS ORDERED: Oxycodone/Acetaminophen 5/325 mg Tab PO STA (20:15)
[2018-03-09] MEDS ORDERED: Oxycodone/Acetaminophen 5/325 mg Tab ONE (22:39)
[2018-03-09] MEDS ORDERED: Magnesium Citrate Oral SOL (300 ml) PO ONE (22:40)
[2018-03-10] MEDS: Pantoprazole 20 mg EC Tab PO SCH ×2 (05:58→15:13)
--- NOTE | 2018-03-10 07:11 | CP.PCM.PN ---
Subjective - Date & Time of Evaluation Date of Evaluation: 03/10/18 Time of Evaluation: 07:09 Objective - Vital Signs/Intake and Output Vital Signs (last 24 hours): Temp Pulse Resp BP Pulse Ox 98.2 F 77 20 124/65 100 03/09/18 08:25 03/09/18 08:25 03/09/18 08:25 03/09/18 08:25 03/09/18 08:25 Intake and Output: 03/10/18 03/10/18 06:59 18:59 Output Total 350 Balance -350 - Medications Medications: Current Medications Atorvastatin Calcium (Lipitor) 10 mg PO DAILY CORIN Docusate Sodium (Colace) 100 mg PO DAILY CORIN Furosemide (Lasix) 20 mg PO DAILY CORIN Lactulose (Enulose) 10 gm PO DAILY CORIN Morphine Sulfate (Morphine) 4 mg IVP Q4H PRN PRN Reason: Pain, severe (8-10) Pantoprazole Sodium (Protonix Ec Tab) 20 mg PO 0600,1600 CORIN Last Admin: 03/10/18 05:58 Dose: 20 mg Tamsulosin HCl (Flomax) 0.4 mg PO DAILY CORIN - Labs Labs: 03/08/18 21:21 03/08/18 21:21 - Additional Findings Additional findings: - Constitutional Appears: Non-toxic, No Acute Distress - Head Exam Head Exam: ATRAUMATIC, NORMAL INSPECTION, NORMOCEPHALIC - Eye Exam Eye Exam: EOMI, Normal appearance - ENT Exam ENT Exam: Mucous Membranes Moist, Normal Exam - Neck Exam Neck exam: Positive for: Normal Inspection - Respiratory Exam Respiratory Exam: Clear to Auscultation Bilateral, NORMAL BREATHING PATTERN - Cardiovascular Exam Cardiovascular Exam: REGULAR RHYTHM, +S1, +S2 - GI/Abdominal Exam GI & Abdominal Exam: Normal Bowel Sounds, Soft - Neurological Exam Neurological exam: Alert, CN II-XII Intact, Oriented x3 - Psychiatric Exam Psychiatric exam: Normal Affect, Normal Mood - Skin Skin Exam: Dry, Intact, Normal Color Assessment and Plan - Assessment and Plan (Free Text) Assessment: Patient is a 47 M with history of prostate cancer s/p prostatectomy presenting with complaints of urinary retention (third episode since procedure). Patient states he was unable to void for 3-4- days which was causing him to have suprapubic pain. Patient discussed his case with his urologist who then advised him to go to the emergency department. Due to multiple failed attempts at placing a catheter, Urologist came to perform suprapubic catheter insertion. Plan: -Continue with management as per Urology -Home medications continued which have been verified with patient's pharmacy ([address] [facility]) -SCDs for DVT prophylaxis, Protonix for GI prophylaxis -Morphine for pain control
[2018-03-10 07:37] LABS: BASO # 0.03 K/mm3 (0.0-2.0); BASO % 0.3 % (0.0-3.0); EOS # 0.5 (0.0-0.7); EOS % 5.4 % (1.5-5.0); GRAN # 4.38 (1.4-6.5); GRAN % 43.7 % (50.0-68.0); HEMOGLOBIN 12.8 g/dL (14.0-18.0); LYMPH # 4.4 (1.2-3.4); MEAN CELL VOLUME 88.7 fl (80.0-105.0); MEAN CORPUSCULAR HEMOGLOBIN 28.8 pg (25.0-35.0); MEAN CORPUSCULAR HGB CONC 32.5 g/dl (31.0-37.0); MEAN PLATELET VOLUME 8.7 fl (7.0-11.0); MONO # 0.7 (0.1-0.6); MONO % 6.6 % (1.0-6.0); RBC 4.44 10^6/uL (3.5-6.1); RED CELL DISTRIBUTION WIDTH 14.6 % (11.5-14.5)
[2018-03-10 08:07] LABS: ALBUMIN 3.6 g/dL (3.0-4.8); ALT/SGPT 24 U/L (7-56); AST/SGOT 16 U/L (17-59); BLOOD UREA NITROGEN 14 mg/dL (7-21); GFR NON-AFRICAN AMERICAN > 60
--- NOTE | 2018-03-10 08:52 | OP ---
PROCEDURE DATE: 03/09/2018 UROLOGY EMERGENCY PROCEDURE NOTE Please see previously dictated notes and consult note on the patient. PREOPERATIVE DIAGNOSES: Urinary retention, prostate cancer, urinary bladder neck contracture, hematuria, voiding dysfunction, meatal stenosis and meatal dilation. POSTOPERATIVE DIAGNOSES: Urinary retention, prostate cancer, urinary bladder neck contracture, hematuria, voiding dysfunction, meatal stenosis and meatal dilation. PROCEDURES: Meatal dilation, cystoscopy, incision of bladder neck contracture, and cystogram and confirmation of the insertion of the cystostomy tube. BLOOD LOSS: Less than 10 mL. COMPLICATIONS: There were no complications. UROLOGY OPERATIVE FINDINGS: 1. The meatus is tight to the point that I needed to use the obturator to insert the scope. We did a little bit of meatal dilation. It is not pinpoint and we were able to get the scope in, but we needed to use the obturator. 2. The anterior urethra is normal. 3. There is no verumontanum identified. 4. At the bladder neck, it is completely cemented down. Please see the listed I left in the chart. I can see a little pinpoint hole and I were able to get a 4 [place] tip catheter through this. Once I confirmed this position under fluoroscopic imaging, I then used a cold knife and incised . There were no complications. INDICATIONS FOR THE PROCEDURE: See history and physical for further details. This is a very pleasant but extreme noncompliant gentleman who initially had a prostate biopsy and then was found to have prostate cancer. He is only 47 years old. He underwent a robotic prostatectomy. Initially, I left the patient at [facility]. At that time, we had discussed various options with the patient and various recommendations. My recommendation is that he has go back to the original surgeon who would love to take him back and help him, but in the meantime, he has been coming to me. I have also explained to the patient that everything cannot be in an emergent basis right now. Every time I see him he is only when he is having trouble. Last time, I did an IOU at [facility]. We would not leave a Morrissey catheter in today. Again, it is very appreciated follow all the recommendations. We then recommended to the patient that he undergo a reconstruction today. I explained to him that I do not see that and I would explain to him in detail why gigantic risk for scar tissue and gigantic risk for incontinence and therefore it is a very difficult procedure to recommend; however, the alternative for the patient would be for him to have catheterize himself and keep himself open with a , perhaps, twice a day depending on his clinical course. I explained that for him a very good option. Based on his history and the fact that he is running into emergency too often, this is now with second or third emergency where I had to come in overnight. Last night, I placed a cystostomy tube. See the separately dictated note. I discussed options with the patient and now he is here today for the internal optical urethrotomy with further plan. I do want to mention in terms of besides indication of findings today, if the bladder neck is extremely thick and very concerning to the point of thick scar tissue, it is actually difficult to cut through with the cold knife. He has very thick tissue. If he was not in emergency, I would actually recommend a biopsy. I only do have a followup of the latest PSA, but I will be concerned that this is not just scar tissue, but there could be underlying malignancy, and he will and should get a biopsy at some point. We are going to recommend on those strongly. So at this point today, we did a cystoscopy, a meatal dilation; as mentioned above, the meatus is tight, I needed a obturator to get in. The other thing that we would recommend, we did a meatal dilation, we did a cystoscopy, we did an incision of the bladder neck. See the body of the report, and we also did a cystogram. I do want to mention one other thing on urology operative findings, our cystostomy tube, the balloon is noted, it is in a good location in the anterior portion of the bladder and the ureter in good location. There were no complications with this procedure. DESCRIPTION OF PROCEDURE: After obtaining informed consent, the patient was placed on the table. Routine monitors placed. Time-outs were called to confirm the patient and positioning. We introduced the cystoscope. We knew the plan as the bladder neck contracture, we went right away with the internal obturator urethrotomy setup. I was not able to access without using the obturator. The meatus is tight. It is not pinpoint but tight. We used the obturator and then we had to dilate it, meatal dilation. The remainder of the urethra is normal until we get to the bladder neck, then it is pinpoint, again, it is thick, white scar tissue. See the picture that I took and left in the chart. Then, we were able to get the ureteral component through this area. Once we did this, we used the cold knife, we made an incision mostly anteriorly, a little bit posteriorly, gently, carefully to get the scope in. We had the ureteral catheter and we confirmed our positioning. I could see the old suprapubic Morrissey that I did it last night. At this point, we put a 22-Bruneian Morrissey catheter via urethra. We took out our olive tip catheter once we were in. We did a cystogram to confirm, I clamped off the suprapubic tube at the level. There was Morrissey. Once we confirmed that we were in well, I actually re-secured the cystostomy tube now with suture material. The patient tolerated the procedure well without complications. ADDENDUM At the termination of the procedure, the patient had a Morrissey via the urethra. He has a cystostomy tube. We confirmed our positioning with a cystogram, and the prostatic fossa is empty, I do not feel any issue there. From the urology standpoint, the next recommendation will be either intermittent catheterization. I do think he should get the biopsy for that area. I do think he should go for reconstruction, but he needs to go to somebody who is a specialist in that area. For further plans to follow. Serjio aGrza MD
--- NOTE | 2018-03-10 09:10 | OP ---
PROCEDURE DATE: 03/08/2018 See the admitting history and physical. The patient is a very pleasant but extremely noncompliant gentleman who is here now for the following procedure. PROCEDURE: Emergency insertion of a suprapubic catheter. BLOOD LOSS: . COMPLICATIONS: There were no complications. INDICATIONS: See history and physical for further details. This is a very pleasant but noncompliant gentleman who is here with recurrent bladder neck contracture, and he is now here for the above-listed procedure. DESCRIPTION OF PROCEDURE: After obtaining informed consent from the patient and discussing all the options, I have also discussed with him on the phone at great length. I discussed the options with the patient and his at length. He does not seem to tolerate a Morrissey well; therefore, we are going to insert a cystostomy tube in the middle of the night here on 03/08/2018. The patient was experiencing significant discomfort and it was unlikely that we would be able to get a Morrissey in; the emergency room had already tried. The patient was in severe discomfort and pain. Therefore, under sterile technique, I prepared the patient in the following fashion. I used a finder needle two fingerbreadths above his pubic bone and using a finder needle, I could identify the bladder. urine. Clear yellow urine was noted. We now provided the patient with more lidocaine so that he would feel nothing. We made a small incision with a 15 blade gently. We . We could feel the pop on the bladder. We then inserted the suprapubic catheter and drained the bladder. About 300 mL immediately came out and then coming. Overall, the patient tolerated the procedure well without complication. The procedure was insertion of a punch cystostomy tube. There were no complications and there was . Serjio Garza MD
[2018-03-10 11:32] LABS: HDL CHOLESTEROL 34 mg/dL (29-60)
[2018-03-10] MEDS ORDERED: Oxycodone/Acetaminophen 5/325 mg Tab PO ONE (11:38)
[2018-03-10 11:43] LABS: LDL CHOLESTEROL 81 mg/dL (0-129)
--- NOTE | 2018-03-10 13:37 | CP.PCM.APN ---
Subjective - Date & Time of Evaluation Date of Evaluation: 03/10/18 Time of Evaluation: 08:45 - Subjective Subjective: Pt seen and examined at bedside. C/O pain on suprapubic cath insertion site. No s/sx of infection at the site. Objective - Vital Signs/Intake and Output Vital Signs (last 24 hours): Temp Pulse Resp BP Pulse Ox 98.5 F 72 20 106/70 97 03/10/18 09:03 03/10/18 09:03 03/10/18 09:03 03/10/18 10:47 03/10/18 09:03 Intake and Output: 03/10/18 03/10/18 06:59 18:59 Output Total 350 Balance -350 - Medications Medications: Current Medications Atorvastatin Calcium (Lipitor) 10 mg PO DAILY [facility] Last Admin: 03/10/18 10:46 Dose: 10 mg Docusate Sodium (Colace) 100 mg PO DAILY [facility] Last Admin: 03/10/18 10:46 Dose: 100 mg Furosemide (Lasix) 20 mg PO DAILY [facility] Last Admin: 03/10/18 10:47 Dose: 20 mg Lactulose (Enulose) 10 gm PO DAILY [facility] Last Admin: 03/10/18 10:45 Dose: 10 gm Oxycodone/Acetaminophen (Percocet 5/325 Mg Tab) 1 tab PO Q6H PRN PRN Reason: Pain, severe (8-10) Stop: 03/13/18 14:01 Pantoprazole Sodium (Protonix Ec Tab) 20 mg PO 0600,1600 [facility] Last Admin: 03/10/18 05:58 Dose: 20 mg Tamsulosin HCl (Flomax) 0.4 mg PO DAILY [facility] Last Admin: 03/10/18 10:46 Dose: 0.4 mg - Labs Labs: 03/10/18 07:20 03/10/18 07:20 - Constitutional Appears: Well - Head Exam Head Exam: NORMAL INSPECTION - Eye Exam Eye Exam: Normal appearance - ENT Exam ENT Exam: Normal Exam - Neck Exam Neck Exam: Full ROM - Respiratory Exam Respiratory Exam: Clear to Ausculation Bilateral, NORMAL BREATHING PATTERN - Cardiovascular Exam Cardiovascular Exam: REGULAR RHYTHM, +S1, +S2 - GI/Abdominal Exam GI & Abdominal Exam: Soft, Normal Bowel Sounds - Rectal Exam Rectal Exam: Deferred - Exam Additional comments: baldwin cath and suprapubic cath draining yellow urine - Extremities Exam Extremities Exam: Normal Inspection - Neurological Exam Neurological Exam: Alert, Awake, Oriented x3 Assessment and Plan - Assessment and Plan (Free Text) Assessment: Pt is a 47 y.o. male w/ pmhx of 47 prostate cancer s/p robotic prostatectomy, who presented to ED complaining of urinary retention. D/W Dr. Garza, planning for possible discharge home today. Plan: S/P suprapubic cath insertion by Dr. Garza Monitor urine output Pain management Meds per MAR Will continue to follow
[2018-03-10] MEDS ORDERED: Oxycodone/Acetaminophen 5/325 mg Tab PO PRN (14:00)
[2018-03-10 15:03] VITALS: BP 117/75; PULSE 73; TEMP 98.1; O2SAT 99
== END 2018-03-10 19:50 | disposition home or self-care (01) ==
LOC: ED 20:52 → ERH 23:16 → 5RNO 03-09 03:01
PROVIDERS: ADMIT Urology; ATTEND Urology
DX: N40.0 Benign prostatic hyperplasia without lower urinary tract symptoms (principal); R33.9 Retention of urine, unspecified; N32.0 Bladder-neck obstruction; E78.5 Hyperlipidemia, unspecified; N35.919 Unspecified urethral stricture, male, unspecified site; Z85.46 Personal history of malignant neoplasm of prostate; Z87.442 Personal history of urinary calculi; Z90.79 Acquired absence of other genital organ(s); Z91.19 Patient's noncompliance with other medical treatment and regimen; Z93.50 Unspecified cystostomy status; Z95.0 Presence of cardiac pacemaker
CPT/HCPCS: 36415; 51040; 51600; 52341; 53899; 74430; 80053; 80061; 81001; 83036; 83735; 84100; 85025; 85027; 87086; 96374; 96375; 96376; 99285; G0378; J0696; J1580; J2250; J2270; J2704; J3010; J7120; Q9966

== ENCOUNTER 2018-03-13 10:22 | Emergency (ER) | payer MEDICARE, OTHER ==
[2018-03-13 10:22] VITALS: BMI 25.7
[2018-03-13 10:28] VITALS: RESP 18
--- NOTE | 2018-03-13 11:12 | ED PDOC ---
Arrival/HPI - General Chief Complaint: Male Genitourinary Time Seen by Provider: 03/13/18 10:30 Historian: Patient - History of Present Illness Narrative History of Present Illness (Text): 03/13/18 11:15 A 47 year old male presents to the emergency department with complaint of pain in the baldwin catheter. The patient notes that he has urinary retention 5 days ago, and was seen by Dr. Garza who placed a suprapubic catheter in on 03/08 and had a cystoscopy and a foleyy cath placed on 03/09. The patient reports that his suprapubic catheter was capped off. He reports that the baldwin has been functioning. His emptied it last night and this morning. He is complaining of a lot of pain in the baldwin catheter. Dr. Garza was contacted, and advised them to come to the emergency department. The patient is a non- smoker/ non- drinker. He denies fevers, chills, headache, dizziness, chest pain, shortness of breath, dyspnea on exertion, cough, abdominal pain, nausea, vomiting, diarrhea, back pain, neck pain, urinary/bowel changes, or any other complaint. Urology: Dr. Garza Symptom Onset: Sudden Symptom Course: Unchanged Activities at Onset: Rest, Light Context: Home Associated Symptoms (Text): 03/13/18 11:28 suprapubic catheter has been capped off. His Baldwin catheter is functioning. I discussed with Dr. Garza and he requested that the Baldwin catheter be removed and the suprapubic catheter be placed on a bag. He will follow-up with the patient in the office tomorrow. Past Medical History - Provider Review Nursing Documentation Reviewed: Yes - Infectious Disease Hx of Infectious Diseases: None - Cardiac Hx Pacemaker: Yes - Pulmonary Hx Respiratory Disorders: No Hx Asthma: No Hx Bronchitis: No Hx Chronic Obstructive Pulmonary Disease (COPD): No Hx Emphysema: No Hx Pneumonia: No Hx Respiratory Aspiration: No Hx Respiratory Tract Infection: No Hx Sleep Apnea: No Hx Tuberculosis: No - Neurological Hx Neurological Disorder: No Hx Alzheimer's Disease: No HX Cerebrovascular Accident: No Hx Dementia: No Hx Dizziness: No Hx Meningitis: No Hx Migraine: No Hx Parkinson's Disease: No Hx Seizures: No Hx Transient Ischemic Attacks (TIA): No - HEENT Hx HEENT Disorder: No Hx Blind: No Hx Cataracts: No Hx Deafness: No Hx Difficulty Chewing: No Hx Epistaxis: No Hx Glaucoma: No Hx Macular Degeneration: No - Renal Hx Renal Disorder: No Hx Dialysis: No Hx Kidney Stones: No Hx Neurogenic Bladder: No Hx Pyelonephritis: No Hx Renal Cancer: No Hx Renal Failure: No Other/Comment: Prostate cancer - Endocrine/Metabolic Hx Endocrine Disorders: No Hx Adrenal Cancer: No Hx Diabetes Insipidus: No Hx Diabetes Mellitus Type 1: No Hx Diabetes Mellitus Type 2: No Hx Hyperthyroidism: No Hx Hypothyroidism: No Hx Systemic Lupus Erythematosus: No - Hematological/Oncological Hx Blood Disorders: No Hx AIDS: No Hx Anemia: No Hx Cancer: No Hx Chemotherapy: No Hx Cirrhosis: No Hx Hemophilia: No Hx Hepatitis A: No Hx Hepatitis B: No Hx Hepatitis C: No Hx Metastasis: No Hx Shingles: No Hx Sickle Cell Disease: No Hx Unexplained Bleeding: No - Integumentary Hx Dermatological Disorder: No Hx Basal Cell Carcinoma: No Hx Eczema: No Hx Melanoma: No Hx Psoriasis: No Hx Squamous Cell Carcinoma: No - Musculoskeletal/Rheumatological Hx Musculoskeletal Disorders: No - Gastrointestinal Hx Gastrointestinal Disorders: No Hx Colostomy: No Hx Crohn's Disease: No Hx Diverticulitis: No Hx Gall Bladder Disease: No Hx Gastroesophageal Reflux: No Hx Ileostomy: No Hx Liver Failure: No Hx Pancreatitis: No HX Swallowing Problems: No - Genitourinary/Gynecological Hx Hematuria: No Hx Incontinence: No Hx Prostate Cancer: Yes Hx Prostate Problems: Yes Hx Sexually Transmitted Diseases: No Hx Urinary Tract Infection: No - Psychiatric Hx Emotional Abuse: No Hx Physical Abuse: No Hx Substance Use: No - Surgical History Other/Comment: Prostate surgery - Anesthesia Hx Anesthesia Reactions: No Hx Malignant Hyperthermia: No - Suicidal Assessment Feels Threatened In Home Enviroment: No Family/Social History - Physician Review Nursing Documentation Reviewed: Yes Family/Social History: No Known Family HX Smoking Status: Never Smoked Hx Alcohol Use: No Hx Substance Use: No Allergies/Home Meds Allergies/Adverse Reactions: Allergies No Known Allergies Allergy (Verified 03/13/18 10:28) Home Medications: Home Meds Medication Instructions Recorded Confirmed RX: Atorvastatin [Lipitor] 10 mg PO DAILY 12/30/17 03/13/18 RX: Docusate Sodium [Dulcolax 100 mg PO DAILY 12/30/17 03/13/18 Stool Softener] RX: Furosemide [Lasix] 20 mg PO DAILY 12/30/17 03/13/18 RX: Lactulose 10 gm PO DAILY 12/30/17 03/13/18 Review of Systems - Physician Review All systems were reviewed & negative as marked: Yes - Review of Systems Constitutional: absent: Fevers Respiratory: absent: SOB, Cough Cardiovascular: absent: Chest Pain, [place] Gastrointestinal: absent: Abdominal Pain, Stool Changes, Diarrhea, Nausea, Vomiting Genitourinary Male: Other (Pain in baldwin catheter.). absent: Urinary Output Changes Musculoskeletal: absent: Back Pain, Neck Pain Neurological: absent: Headache, Dizziness Physical Exam Vital Signs Reviewed: Yes Vital Signs Temp Pulse Resp BP Pulse Ox 03/13/18 10:24 98 F 72 18 124/81 98 Temperature: Afebrile Blood Pressure: Normal Pulse: Regular Respiratory Rate: Normal Appearance: Positive for: Well-Appearing, Non-Toxic, Comfortable Pain Distress: None Mental Status: Positive for: Alert and Oriented X 3 - Systems Exam Respiratory/Chest: Present: Clear to Auscultation, Good Air Exchange. No: Respiratory Distress, Accessory Muscle Use Cardiovascular: Present: Regular Rate and Rhythm, Normal S1, S2. No: Murmurs Abdomen: Present: Other (suprapubic clean and dry.). No: Tenderness, Distention, Peritoneal Signs Psychiatric: Present: Alert, Oriented x 3, Normal Insight, Normal Concentration Medical Decision Making ED Course and Treatment: 03/13/18 11:23 Impression: A 47 year old male presents to the emergency department with a complaint of pain in baldwin catheter. Plan: -- Reassess and disposition Prior Visits: Notes and results from previous visits were reviewed. Progress Notes: 03/13/18 11:24: I spoke to Dr. Garza. State she wants the baldwin taken out and the suprapubic catheter hooked up with a bag and will follow up with him in the office tomorrow. - Scribe Statement The provider has reviewed the documentation as recorded by the Marinibsandra Jimenez Provider Scribe Attestation: All medical record entries made by the Scribe were at my direction and personally dictated by me. I have reviewed the chart and agree that the record accurately reflects my personal performance of the history, physical exam, medical decision making, and the department course for this patient. I have also personally directed, reviewed, and agree with the discharge instructions and disposition. Disposition/Present on Arrival - Present on Arrival Any Indicators Present on Arrival: No History of DVT/PE: No History of Uncontrolled Diabetes: No Urinary Catheter: Yes History of Decub. Ulcer: No History Surgical Site Infection Following: None - Disposition Have Diagnosis and Disposition been Completed?: Yes Diagnosis: Urethral stricture, Urinary retention Disposition: HOME/ ROUTINE Disposition Time: 11:30 Patient Problems: Current Active Problems Problem Status Onset Urethral stricture Acute Urinary retention Acute Condition: GOOD Discharge Instructions (ExitCare): Urinary Retention Referrals: Herb Garza MD [Primary Care Provider] - Follow up with primary Forms: [employer] (Ugandan)
[2018-03-13 11:54] VITALS: BP 120/73; PULSE 74; TEMP 98.2; O2SAT 99
== END 2018-03-13 11:53 | disposition home or self-care (01) ==
LOC: ED 10:22
DX: N35.919 Unspecified urethral stricture, male, unspecified site (principal); R33.9 Retention of urine, unspecified

== ENCOUNTER 2018-04-06 08:45 | Observation (INO) | payer MEDICARE, OTHER ==
[2018-04-06] MEDS ORDERED: Morphine 4 mg/ml ISec IVP STA (09:30)
[2018-04-06] MEDS ORDERED: Sodium Chloride 0.9% 1,000 ML IV STA (09:40)
[2018-04-06 09:47] LABS: BASO # 0.05 K/mm3 (0.0-2.0); BASO % 0.6 % (0.0-3.0); EOS # 0.5 (0.0-0.7); EOS % 5.9 % (1.5-5.0); HEMOGLOBIN 14.9 g/dL (14.0-18.0); LYMPH % 48.7 % (22.0-35.0); MEAN CELL VOLUME 86.6 fl (80.0-105.0); MEAN CORPUSCULAR HEMOGLOBIN 28.9 pg (25.0-35.0); MEAN CORPUSCULAR HGB CONC 33.4 g/dl (31.0-37.0); MEAN PLATELET VOLUME 9.1 fl (7.0-11.0); MONO # 0.5 (0.1-0.6); MONO % 5.8 % (1.0-6.0); RBC 5.15 10^6/uL (3.5-6.1); RED CELL DISTRIBUTION WIDTH 14.5 % (11.5-14.5); WHITE BLOOD COUNT 8.3 10^3/uL (4.5-11.0)
[2018-04-06 10:02] LABS: ALB/GLOB RATIO 1.2 (1.1-1.8); ALBUMIN 4.6 g/dL (3.0-4.8); ALT/SGPT 27 U/L (7-56); AST/SGOT 17 U/L (17-59); BLOOD UREA NITROGEN 16 mg/dL (7-21); CALCIUM 9.8 mg/dL (8.4-10.5); GFR NON-AFRICAN AMERICAN > 60
--- NOTE | 2018-04-06 10:16 | ED PDOC ---
Arrival/HPI - General Chief Complaint: Male Genitourinary Time Seen by Provider: 04/06/18 09:30 Historian: Patient - History of Present Illness Narrative History of Present Illness (Text): 04/06/18 10:09 47 year old male, whose past medical history includes prostate cancer s/p robotic prostatectomy, who presents to the Emergency department complaining of urinary retention. He was seen by Dr. Garza on Wednesday who noted purulent material surround the suprapubic catheter site. Patient states worsening pain thought the week when no urinary output was noted from the catheter earlier today. Of note, a supratheter was placed on 03/08/18 where urologist noted difficulty placing Morrissey catheter initially due to urethral stricture and opted for suprapubic catheter placement. Patient denies fevers, chills, headache, dizziness, chest pain, shortness of breath, dyspnea on exertion, cough, abdominal pain, nausea, vomiting, diarrhea, back pain, neck pain, or any other complaint. Urologist: Dr. Garza Time/Duration: < week Symptom Onset: Gradual Symptom Course: Unchanged Activities at Onset: Light Context: Home Past Medical History - Provider Review Nursing Documentation Reviewed: Yes - Infectious Disease Hx of Infectious Diseases: None - Cardiac Hx Pacemaker: Yes - Pulmonary Hx Respiratory Disorders: No Hx Asthma: No Hx Bronchitis: No Hx Chronic Obstructive Pulmonary Disease (COPD): No Hx Emphysema: No Hx Pneumonia: No Hx Respiratory Aspiration: No Hx Respiratory Tract Infection: No Hx Sleep Apnea: No Hx Tuberculosis: No - Neurological Hx Neurological Disorder: No Hx Alzheimer's Disease: No HX Cerebrovascular Accident: No Hx Dementia: No Hx Dizziness: No Hx Meningitis: No Hx Migraine: No Hx Parkinson's Disease: No Hx Seizures: No Hx Transient Ischemic Attacks (TIA): No - HEENT Hx HEENT Disorder: No Hx Blind: No Hx Cataracts: No Hx Deafness: No Hx Difficulty Chewing: No Hx Epistaxis: No Hx Glaucoma: No Hx Macular Degeneration: No - Renal Hx Renal Disorder: No Hx Dialysis: No Hx Kidney Stones: No Hx Neurogenic Bladder: No Hx Pyelonephritis: No Hx Renal Cancer: No Hx Renal Failure: No Other/Comment: Prostate cancer - Endocrine/Metabolic Hx Endocrine Disorders: No Hx Adrenal Cancer: No Hx Diabetes Insipidus: No Hx Diabetes Mellitus Type 1: No Hx Diabetes Mellitus Type 2: No Hx Hyperthyroidism: No Hx Hypothyroidism: No Hx Systemic Lupus Erythematosus: No - Hematological/Oncological Hx Blood Disorders: No Hx AIDS: No Hx Anemia: No Hx Cancer: No Hx Chemotherapy: No Hx Cirrhosis: No Hx Hemophilia: No Hx Hepatitis A: No Hx Hepatitis B: No Hx Hepatitis C: No Hx Metastasis: No Hx Shingles: No Hx Sickle Cell Disease: No Hx Unexplained Bleeding: No - Integumentary Hx Dermatological Disorder: No Hx Basal Cell Carcinoma: No Hx Eczema: No Hx Melanoma: No Hx Psoriasis: No Hx Squamous Cell Carcinoma: No - Musculoskeletal/Rheumatological Hx Musculoskeletal Disorders: No - Gastrointestinal Hx Gastrointestinal Disorders: No Hx Colostomy: No Hx Crohn's Disease: No Hx Diverticulitis: No Hx Gall Bladder Disease: No Hx Gastroesophageal Reflux: No Hx Ileostomy: No Hx Liver Failure: No Hx Pancreatitis: No HX Swallowing Problems: No - Genitourinary/Gynecological Hx Hematuria: No Hx Incontinence: No Hx Prostate Cancer: Yes Hx Prostate Problems: Yes Hx Sexually Transmitted Diseases: No Hx Urinary Tract Infection: No - Psychiatric Hx Emotional Abuse: No Hx Physical Abuse: No Hx Substance Use: No - Surgical History Other/Comment: Prostate surgery - Anesthesia Hx Anesthesia: Yes Hx Anesthesia Reactions: No Hx Malignant Hyperthermia: No - Suicidal Assessment Feels Threatened In Home Enviroment: No Family/Social History - Physician Review Nursing Documentation Reviewed: Yes Family/Social History: No Known Family HX Smoking Status: Never Smoked Hx Alcohol Use: No Hx Substance Use: No Allergies/Home Meds Allergies/Adverse Reactions: Allergies No Known Allergies Allergy (Verified 03/13/18 10:28) Home Medications: Home Meds Medication Instructions Recorded Confirmed RX: Nystatin [Nyamyc] 30 gm TOP PRN PRN 04/06/18 04/06/18 RX: Ranitidine HCl [Zantac] 300 mg PO DAILY 04/06/18 04/06/18 Review of Systems - Physician Review All systems were reviewed & negative as marked: Yes - Review of Systems Constitutional: absent: Fevers Respiratory: absent: SOB, Cough Cardiovascular: absent: Chest Pain Gastrointestinal: absent: Abdominal Pain, Diarrhea, Nausea, Vomiting Genitourinary Male: Other (urinary retention) Musculoskeletal: absent: Back Pain, Neck Pain Neurological: absent: Headache, Dizziness Physical Exam Vital Signs Reviewed: Yes Vital Signs Temp Pulse Resp BP Pulse Ox 04/06/18 09:26 112 H 20 160/113 H 100 04/06/18 08:46 98.7 F 137 H 18 157/93 H 99 Temperature: Afebrile Blood Pressure: Hypertensive Pulse: Tachycardic Respiratory Rate: Normal Appearance: Positive for: Well-Appearing, Non-Toxic, Comfortable Pain Distress: None Mental Status: Positive for: Alert and Oriented X 3 - Systems Exam Head: Present: Atraumatic, Normocephalic Pupils: Present: PERRL Extroacular Muscles: Present: EOMI Conjunctiva: Present: Normal Mouth: Present: Moist Mucous Membranes Neck: Present: Normal Range of Motion Respiratory/Chest: Present: Clear to Auscultation, Good Air Exchange. No: Respiratory Distress, Accessory Muscle Use Cardiovascular: Present: Regular Rate and Rhythm, Normal S1, S2. No: Murmurs Abdomen: Present: Distention (abdominal distention noted), Other (suprapubic catheter in place, cottage cheese like fibrionous material noted, no urine noted in the leg bag). No: Tenderness, Peritoneal Signs Back: Present: Normal Inspection Upper Extremity: Present: Normal Inspection. No: Cyanosis, Edema Lower Extremity: Present: Normal Inspection. No: Edema Neurological: Present: GCS=15 Skin: Present: Warm, Dry, Normal Color. No: Rashes Psychiatric: Present: Alert, Oriented x 3, Normal Insight, Normal Concentration, Anxious Medical Decision Making ED Course and Treatment: 04/06/18 10:10 Impression: 47 year old male who presents to the emergency department complaining of urinary retention. Differential Diagnosis included but are not limited to: --Sticture --Bladder calculus Plan: -- Labs -- Chest X-ray -- Morphine -- IV fluids -- Toradol -- Valium -- Reassess and disposition Prior Visits: Notes and results from previous visits were reviewed. Progress Notes: Bladder scan shows 224 ml or urine within bladder. Discussed case with Dr. Garza(urology) who suggests to flush suprapubic catheter and if unable; attempt to place indwelling Morrissey with admission to hospitalist service. He states he will be at the bedside to assist in alleviate pain. Bedside ultra sound reveals intact suprapubic balloon with multiple attempts to place caudet catheter (14F and 16F) unsuccessfully. Call placed to Dr. Oumar Mayers(hospitalist). 04/06/18 11:[address] Mayers who accepts patient onto her service for admission. She recommends administering Benadryl to assist in alleviating symptoms. Plan communicated to nurse. - Lab Interpretations Lab Results: Total Bilirubin 0.5 mg/dL (0.2-1.3) 04/06/18 09:40 AST 17 U/L (17-59) 04/06/18 09:40 ALT 27 U/L (7-56) 04/06/18 09:40 Alkaline Phosphatase 165 U/L (38-126) H D 04/06/18 09:40 Total Protein 8.4 g/dL (5.8-8.3) H 04/06/18 09:40 Albumin 4.6 g/dL (3.0-4.8) 04/06/18 09:40 Globulin 3.9 gm/dL 04/06/18 09:40 Albumin/Globulin Ratio 1.2 (1.1-1.8) 04/06/18 09:40 I have reviewed the lab results: Yes - RAD Interpretation Narrative RAD Interpretations (Text): 04/06/18 11:32 Chest X-ray reviewed by radiologist, shows: IMPRESSION: No active disease. Cervical and thoracic epidural stimulator is identified in situ incidentally. Radiology Orders: 04/06/18 09:40 CHEST PORTABLE [RAD] Stat Cerner Analyst: Radiologist - EKG Interpretation EKG Interpretation (Text): 04/06/18 14:59 EKG reviewed by me, shows: Sinus tachycardia at 100bpm with QT prolongation. Interpreted by ED Physician: Yes Type: 12 lead EKG - Medication Orders Current Medication Orders: Sodium Chloride (Sodium Chloride 0.9%) 1,000 mls @ 999 mls/hr IV .Q1H1M STA Stop: 04/06/18 10:40 Discontinued Medications Diazepam (Valium) 5 mg PO ONCE ONE; Protocol Stop: 04/06/18 09:31 Last Admin: 04/06/18 09:36 Dose: 5 mg Ketorolac Tromethamine (Toradol) 30 mg IVP STAT STA Stop: 04/06/18 09:31 Last Admin: 04/06/18 09:39 Dose: 30 mg MAR Pain Assessment Document 04/06/18 09:39 BB (Rec: 04/06/18 09:39 BB [id number] Pain Reassessment Is this a pain reassessment? No Sleep Is patient sleeping during reassessment? No Presence of Pain Presence of Pain Yes Pain Scale Used Protocol: [facility] Pain Scale Used Numeric Location Upper or Lower Lower Pain Location Body Site Abdomen Description Description Constant Intensity of Pain at present 10 Pain Behavior Moaning Crying Guarding Withdrawal from Touch IVP Administration Document 04/06/18 09:39 BB (Rec: 04/06/18 09:39 BB [id number] Charges for Administration # of IVP Administrations 1 Morphine Sulfate (Morphine) 4 mg IVP STAT STA Stop: 04/06/18 09:31 Last Admin: 04/06/18 09:38 Dose: 4 mg MAR Pain Assessment Document 04/06/18 09:38 BB (Rec: 04/06/18 09:39 BB [id number] Pain Reassessment Is this a pain reassessment? No Sleep Is patient sleeping during reassessment? No Presence of Pain Presence of Pain Yes Pain Scale Used Protocol: [facility] Pain Scale Used Numeric Location Upper or Lower Lower Pain Location Body Site Abdomen Description Description Pressure Intensity of Pain at present 10 Pain Behavior Moaning Guarding Irritability Withdrawal from Touch Restlessness Aggravating Factors ADL's Changing Position IVP Administration Document 04/06/18 09:38 BB (Rec: 04/06/18 09:39 BB [id number] Charges for Administration # of IVP Administrations 1 - Scribe Statement The provider has reviewed the documentation as recorded by the Scribe Sondra Herbert Provider Scribe Attestation: All medical record entries made by the Scribe were at my direction and personally dictated by me. I have reviewed the chart and agree that the record accurately reflects my personal performance of the history, physical exam, medical decision making, and the department course for this patient. I have also personally directed, reviewed, and agree with the discharge instructions and disposition. Disposition/Present on Arrival - Present on Arrival Any Indicators Present on Arrival: Yes History of DVT/PE: No History of Uncontrolled Diabetes: No Urinary Catheter: Yes History of Decub. Ulcer: No History Surgical Site Infection Following: None - Disposition Have Diagnosis and Disposition been Completed?: Yes Diagnosis: Urethral stricture, Urinary retention Disposition: HOSPITALIZED Disposition Time: 09:30 Patient Plan: Observation Condition: GOOD
[2018-04-06 11:05] LABS: INR 1.19; PARTIAL THROMBOPLASTIN TIME 32.4 Seconds (26.9-38.3); PROTHROMBIN TIME 13.5 SECONDS (9.4-12.5)
--- NOTE | 2018-04-06 11:27 | RAD ---
Date of service: 04/06/2018 HISTORY: sob COMPARISON: Portable chest 12/25/2016. FINDINGS: LUNGS: No active pulmonary disease. PLEURA: No significant pleural effusion identified, no pneumothorax apparent. CARDIOVASCULAR: No aortic atherosclerotic calcification present. Normal cardiac size. No pulmonary vascular congestion. OSSEOUS STRUCTURES: Lower thoracic and lower cervical epidural stimulator is identified in situ. VISUALIZED UPPER ABDOMEN: Normal. OTHER FINDINGS: None. IMPRESSION: No active disease. Cervical and thoracic epidural stimulator is identified in situ incidentally.
[2018-04-06 11:36] LABS: URINE BILIRUBIN NEGATIVE (NEGATIVE); URINE BLOOD LARGE (NEGATIVE); URINE GLUCOSE (UA) NEGATIVE (NEGATIVE); URINE LEUKOCYTE ESTERASE MODERATE Leu/uL (NEGATIVE); URINE PROTEIN 100 mg/dL (<30 mg/dL); URINE UROBILINOGEN 0.2 E.U./dL (<1 E.U./dL)
[2018-04-06 11:38] LABS: URINE APPEARANCE SL CLOUDY (CLEAR); URINE COLOR YELLOW (YELLOW)
[2018-04-06] MEDS ORDERED: cefTRIAXone 1 gm 1 GM/100 ML BAG IVPB STA (11:43)
[2018-04-06 11:45] LABS: URINE BACTERIA MANY /hpf; URINE RBC TNTC /hpf (0-2); URINE WBC TNTC /hpf (0-6)
[2018-04-06] MEDS ORDERED: DiphenhydrAMINE 50 mg/ml Inj IVP STA (12:26)
[2018-04-06] MEDS ORDERED: oxyCODONE 20 mg ER Tab (oxyCONTIN) PO SCH (12:45)
--- NOTE | 2018-04-06 12:56 | CP.PCM.HP ---
<SemajChristinaNam Wan - Last Filed: 04/06/18 17:39> History of Present Illness - History of Present Illness History of Present Illness: Nam Cha PGY1, History and Physical for Dr Seda Mayers Pt is a47 yo male with PMH of prostate cancer s/p robotic prostatectomy who presents to ED complaining of urinary retention that began last night at 7pm. Pt states the pain and urinary urgency have gotten worse which prompted him to to present to the ED. He describes the pain as a heaviness and fullness in the suprapubic region, testes, and penis. Pt states he took Flomax .4mg last night with no relief. Laying supine and sitting down make the pain worse. A suprapubic catheter was placed 03/09/[address] Esquivel. Nurse noted a 25ml urine output after the suprapubic catheter was flushed. Patient complains of shortness of breath, dizziness, and abdominal discomfort secondary to the urinary retention. Denies nausea, vomiting. Denies chest pain, headaches, back pain. Bed side bladder scan completed in ED revealed retention of 224mL. Patient given morphine, valium, and toradol for pain control. A 12 point ROS was obtained and added to the HPI where appropriate. PMH: prostate cancer s/p robotic prostatectomy PSH: robotic prostatectomy. FH: Father, 73 years old, alive, with prostate cancer s/p prostatectomy. Mother in MVA 45yo SH denies tobacco, alcohol and illicit drug use Home Meds:Flomax .4mg once a day, Ranitidine 300mg q4h, Percocet 5mg q6 PRN, Nystatin topical Allergies: denies Urologist: Dr. Esquivel Present on Admission - Present on Admission Any Indicators Present on Admission: No Review of Systems - Review of Systems Review of Systems: a 12 point ROS was obtained and added to the HPI where appropriate Past Patient History - Infectious Disease Hx of Infectious Diseases: None - Past Medical History & Family History Past Medical History?: Yes - Past Social History Smoking Status: Never Smoked - CARDIAC Hx Pacemaker: Yes - PULMONARY Hx Respiratory Disorders: No Hx Asthma: No Hx Bronchitis: No Hx Chronic Obstructive Pulmonary Disease (COPD): No Hx Emphysema: No Hx Pneumonia: No Hx Respiratory Aspiration: No Hx Respiratory Tract Infection: No Hx Sleep Apnea: No Hx Tuberculosis: No - NEUROLOGICAL Hx Neurological Disorder: No Hx Alzheimer's Disease: No HX Cerebrovascular Accident: No Hx Dementia: No Hx Dizziness: No Hx Meningitis: No Hx Migraine: No Hx Parkinson's Disease: No Hx Seizures: No Hx Transient Ischemic Attacks (TIA): No - HEENT Hx HEENT Problems: No Hx Blind: No Hx Cataracts: No Hx Deafness: No Hx Difficulty Chewing: No Hx Epistaxis: No Hx Glaucoma: No Hx Macular Degeneration: No - RENAL Hx Chronic Kidney Disease: No Hx Dialysis: No Hx Kidney Stones: No Hx Neurogenic Bladder: No Hx Pyelonephritis: No Hx Renal (Kidney) Cancer: No Hx Renal Failure: No Other/Comment: Prostate cancer - ENDOCRINE/METABOLIC Hx Endocrine Disorders: No Hx Adrenal Cancer: No Hx Diabetes Insipidus: No Hx Diabetes Mellitus Type 1: No Hx Diabetes Mellitus Type 2: No Hx Hyperthyroidism: No Hx Hypothyroidism: No Hx Systemic Lupus Erythematosus: No - HEMATOLOGICAL/ONCOLOGICAL Hx Blood Disorders: No Hx AIDS: No Hx Anemia: No Hx Cancer: No Hx Chemotherapy: No Hx Cirrhosis: No Hx Hemophilia: No Hx Hepatitis A: No Hx Hepatitis B: No Hx Hepatitis C: No Hx Metastesis: No Hx Shingles: No Hx Sickle Cell Disease: No Hx Unexplained Bleeding: No - INTEGUMENTARY Hx Dermatological Problems: No Hx Basil Cell: No Hx Eczema: No Hx Melanoma: No Hx Psoriasis: No Hx Squamous Cell: No - MUSCULOSKELETAL/RHEUMATOLOGICAL Hx Musculoskeletal Disorders: No - GASTROINTESTINAL Hx Gastrointestinal Disorders: No Hx Colostomy: No Hx Crohn's Disease: No Hx Diverticulitis: No Hx Gall Bladder Disease: No Hx Gastroesophageal Reflux: No Hx Ileostomy: No Hx Liver Failure: No Hx Pancreatitis: No HX Swallowing Problems: No - GENITOURINARY/GYNECOLOGICAL Hx Hematuria: No Hx Incontinence: No Hx Prostate Cancer: Yes Hx Prostate Problems: Yes Hx Sexually Transmitted Disorders: No Hx Urinary Tract Infection: No - PSYCHIATRIC Hx Emotional Abuse: No Hx Physical Abuse: No Hx Substance Use: No - SURGICAL HISTORY Other/Comment: Prostate surgery - ANESTHESIA Hx Anesthesia: Yes Hx Anesthesia Reactions: No Hx Malignant Hyperthermia: No Meds Allergies/Adverse Reactions: Allergies Allergy/AdvReac Type Severity Reaction Status Date / Time No Known Allergies Allergy Verified 03/13/18 10:28 Physical Exam - Constitutional Appears: In Acute Distress - Head Exam Head Exam: ATRAUMATIC, NORMOCEPHALIC - Eye Exam Eye Exam: EOMI - ENT Exam ENT Exam: Mucous Membranes Moist - Neck Exam Neck exam: Positive for: Full Rom, Normal Inspection - Respiratory Exam Respiratory Exam: Clear to Auscultation Bilateral, NORMAL BREATHING PATTERN. absent: Accessory Muscle Use, Respiratory Distress - Cardiovascular Exam Cardiovascular Exam: Tachycardia, +S1, +S2. absent: Diastolic murmur, Systolic Murmur - GI/Abdominal Exam GI & Abdominal Exam: Normal Bowel Sounds, Soft. absent: Tenderness Additional comments: suprapubic catheter in place, a small amount of purulent fluid around catheter site. - Extremities Exam Extremities exam: Positive for: full ROM. Negative for: calf tenderness, pedal edema - Neurological Exam Neurological exam: Alert, Oriented x3 - Psychiatric Exam Psychiatric exam: Normal Affect, Normal Mood - Skin Skin Exam: Dry, Intact, Warm Results - Vital Signs Recent Vital Signs: Last Vital Signs Temp 98.7 F 04/06/18 08:46 Pulse 108 H 04/06/18 11:30 Resp 20 04/06/18 11:30 BP 104/57 L 04/06/18 11:30 Pulse Ox 100 04/06/18 11:30 - Labs Result Diagrams: 04/06/18 09:40 04/06/18 09:40 Labs: Laboratory Results - last 24 hr 04/06/18 04/06/18 04/06/18 09:19 09:40 09:40 WBC 8.3 RBC 5.15 Hgb 14.9 D Hct 44.6 MCV 86.6 MCH 28.9 MCHC 33.4 RDW 14.5 Plt Count 278 MPV 9.1 Neut % (Auto) 39.0 L Lymph % (Auto) 48.7 H Clarke % (Auto) 5.8 Eos % (Auto) 5.9 H Baso % (Auto) 0.6 Lymph # (Auto) 4.0 H Clarke # (Auto) 0.5 Eos # (Auto) 0.5 Baso # (Auto) 0.05 Absolute Neuts (auto) 3.23 PT 13.5 H INR 1.19 APTT 32.4 Sodium 141 Potassium 4.1 Chloride 106 Carbon Dioxide 25 Anion Gap 15 BUN 16 Creatinine 1.0 Est GFR ( Amer) > 60 Est GFR (Non-Af Amer) > 60 Random Glucose 115 H Calcium 9.8 Magnesium 2.0 Total Bilirubin 0.5 AST 17 ALT 27 Alkaline Phosphatase 165 H D Total Protein 8.4 H Albumin 4.6 Globulin 3.9 Albumin/Globulin Ratio 1.2 Urine Color Urine Appearance Urine pH Ur Specific [place] Urine Protein Urine Glucose (UA) Urine Ketones Urine Blood Urine Nitrate Urine Bilirubin Urine Urobilinogen Ur Leukocyte Esterase Urine RBC Urine WBC Ur Epithelial Cells Urine Bacteria 04/06/18 11:18 WBC RBC Hgb Hct MCV MCH MCHC RDW Plt Count MPV Neut % (Auto) Lymph % (Auto) Clarke % (Auto) Eos % (Auto) Baso % (Auto) Lymph # (Auto) Clarke # (Auto) Eos # (Auto) Baso # (Auto) Absolute Neuts (auto) PT INR APTT Sodium Potassium Chloride Carbon Dioxide Anion Gap BUN Creatinine Est GFR ( Amer) Est GFR (Non-Af Amer) Random Glucose Calcium Magnesium Total Bilirubin AST ALT Alkaline Phosphatase Total Protein Albumin Globulin Albumin/Globulin Ratio Urine Color Yellow Urine Appearance Sl cloudy Urine pH 6.0 Ur Specific [place] >= 1.030 Urine Protein 100 H Urine Glucose (UA) Negative Urine Ketones Trace H Urine Blood Large H Urine Nitrate Positive H Urine Bilirubin Negative Urine Urobilinogen 0.2 Ur Leukocyte Esterase Moderate H Urine RBC Tntc H Urine WBC Tntc H Ur Epithelial Cells None Urine Bacteria Many Assessment & Plan - Assessment and Plan (Free Text) Assessment: Pt is a 47yo male with a PMH of prostate cancer s/p resection and suprapubic catheter who presents with a 1 day history of being unable to urinate, with associated penial, testicular, and suprapubic pain. Plan: Urinary Retention - history of prostate CA, s/p resection - likely due to malfunctioning suprapubic catheter - given diazepam 5mg for anxiety, toradol, and morphine for pain - UA: blood, nitrates, LE, WBC - urine culture follow up - flomax given in ED - Benadryl given for urinary retention, will give benztropine in the future if needed - Urology Dr Garza consulted, called and notified, states he will be on his way to assess pt Ppx, diet - HHD Pt seen, examined, assessment and plan discussed with Dr Seda Cha PGY1, Internal Medicine Resident - Date & Time Date: 04/06/18 Time: 12:57 <Seda Mayers R - Last Filed: 04/07/18 07:36> Results - Vital Signs Recent Vital Signs: Last Vital Signs Temp 97.2 F L 04/06/18 22:00 Pulse 96 H 04/06/18 23:17 Resp 18 04/06/18 23:17 BP 106/68 04/06/18 22:00 Pulse Ox 97 04/06/18 22:00 - Labs Result Diagrams: 04/07/18 07:00 04/07/18 07:00 Labs: Laboratory Results - last 24 hr 04/06/18 04/06/18 04/06/18 09:19 09:40 09:40 WBC 8.3 RBC 5.15 Hgb 14.9 D Hct 44.6 MCV 86.6 MCH 28.9 MCHC 33.4 RDW 14.5 Plt Count 278 MPV 9.1 Neut % (Auto) 39.0 L Lymph % (Auto) 48.7 H Clarke % (Auto) 5.8 Eos % (Auto) 5.9 H Baso % (Auto) 0.6 Lymph # (Auto) 4.0 H [place] # (Auto) 0.5 Eos # (Auto) 0.5 Baso # (Auto) 0.05 Absolute Neuts (auto) 3.23 PT 13.5 H INR 1.19 APTT 32.4 Sodium 141 Potassium 4.1 Chloride 106 Carbon Dioxide 25 Anion Gap 15 BUN 16 Creatinine 1.0 Est GFR ( Amer) > 60 Est GFR (Non-Af Amer) > 60 Random Glucose 115 H Calcium 9.8 Magnesium 2.0 Total Bilirubin 0.5 AST 17 ALT 27 Alkaline Phosphatase 165 H D Total Protein 8.4 H Albumin 4.6 Globulin 3.9 Albumin/Globulin Ratio 1.2 Urine Color Urine Appearance Urine pH Ur Specific [place] Urine Protein Urine Glucose (UA) Urine Ketones Urine Blood Urine Nitrate Urine Bilirubin Urine Urobilinogen Ur Leukocyte Esterase Urine RBC Urine WBC Ur Epithelial Cells Urine Bacteria 04/06/18 04/07/18 04/07/18 11:18 07:00 07:00 WBC 7.7 RBC 4.30 Hgb 12.1 L D Hct 37.4 L MCV 87.0 MCH 28.1 MCHC 32.4 RDW 14.9 H Plt Count 252 MPV 8.7 Neut % (Auto) 46.9 L Lymph % (Auto) 35.5 H Clarke % (Auto) 11.5 H Eos % (Auto) 5.7 H Baso % (Auto) 0.4 Lymph # (Auto) 2.7 Clarke # (Auto) 0.9 H Eos # (Auto) 0.4 Baso # (Auto) 0.03 Absolute Neuts (auto) 3.60 PT INR APTT Sodium 139 Potassium 4.3 Chloride 110 H Carbon Dioxide 28 Anion Gap 5 L BUN 16 Creatinine 1.0 Est GFR ( Amer) > 60 Est GFR (Non-Af Amer) > 60 Random Glucose 99 Calcium 9.1 Magnesium Total Bilirubin 0.6 AST 16 L ALT 22 Alkaline Phosphatase 121 Total Protein 6.7 Albumin 3.4 Globulin 3.2 Albumin/Globulin Ratio 1.1 Urine Color Yellow Urine Appearance Sl cloudy Urine pH 6.0 Ur Specific [place] >= 1.030 Urine Protein 100 H Urine Glucose (UA) Negative Urine Ketones Trace H Urine Blood Large H Urine Nitrate Positive H Urine Bilirubin Negative Urine Urobilinogen 0.2 Ur Leukocyte Esterase Moderate H Urine RBC Tntc H Urine WBC Tntc H Ur Epithelial Cells None Urine Bacteria Many Attending/Attestation - Attestation I have personally seen and examined this patient.: Yes I have fully participated in the care of the patient.: Yes I have reviewed all pertinent clinical information: Yes Notes (Text): Patient seen and examined by me with resident at 12PM on 04/06/18. Case including HPI, physical exam, and assessment and plan discussed with resident. Agree with above with following additions/corrections. Patient is a 47-year-old male with past medical history significant for prostate cancer status post prostatectomy that presented to the emergency room with urinary retention that started at 7 PM last night. Patient states that he feels fullness and pressure in his testicles and penis. Patient also complains of lower abdominal pain. He states "my balls are going to explode." Patient is unable to lie down or sit on the bed. He states he feels better standing up. Patient had Flomax and Percocet with no relief. Patient complains of associated shortness of breath and dizziness. No nausea or vomiting. Suprapubic catheter was placed on 03/09/[address] Garza. Patient denies any headaches or lightheadedness. No fevers or chills. No chest pain or palpitations. Patient states he has been unable to have a bowel movement secondary to the pain. No neck pain or back pain. 12 point review of systems reviewed by me. See above HPI. All other systems negative. Physical exam: General: Awake and alert sitting standing up in acute distress HEENT: Normocephalic, atraumatic. Extraocular muscles intact, pupils equal and reactive, no scleral icterus. Oropharynx is pink and moist. No pharyngeal erythema or exudate apreciated. Neck is supple. Hearing grossly intact. Ears and nose externally unremarkable. Cardiovascular: Regular rhythm. Normal S1 and S2. No murmurs, rubs, or gallops appreciated Pulmonary: Normal respiratory effort. No rhonchi, rales, or wheezing appreciated. Gastrointestinal: Soft, nondistended. Positive lower abdominal and suprapubic tenderness. Positive bowel sounds all 4 quadrants. No guarding. Musculoskeletal: Moves all extremities. No calf tenderness. No edema appreciated : suprapubic catheter in place with minimal urine output. mild edema testicles and penile area. Central nervous system: AAOx3, CN 2-12 grossly intact. 5/ 5 muscle strength all extremities. Dermatologic: Skin warm and dry. Assessment and plan: Patient is a 47-year-old male with past medical history significant for prostate cancer status post prostatectomy that presented to the emergency room with urinary retention that started at 7 PM last night. 1. Urinary retention. Suprapubic pain. S/P prostatectomy. Continue Flomax. Discussed with urologist Dr. Garza. Dr. Garza to evaluate patient. Continue pain management. Patient given Benadryl for anticholinergic effect. 2. UTI. Placed on Rocephin. Pending urine culture, per Dr. Garza, patient can follow up in office for results. No leukocytosis, Afebrile. 3. History of spine surgery. Chest xray shows cervical and thoracic epidural stimulator. No current issues. Patient on percocet at home. 4. GI/DVT prophylaxis. Protonix/SCDs and ambulation. Case was discussed in detail with the patient regarding current diagnosis and treatment plan. All questions answered.
[2018-04-06] MEDS ORDERED: Nystatin 100,000 Units/gm Topical Pow(15 gm) TOP PRN (19:11)
--- NOTE | 2018-04-06 22:42 | CP.PCM.CON ---
Past Patient History - Infectious Disease Hx of Infectious Diseases: None - Past Medical History & Family History Past Medical History?: Yes - Past Social History Smoking Status: Never Smoked - CARDIAC Hx Pacemaker: Yes - PULMONARY Hx Respiratory Disorders: No Hx Asthma: No Hx Bronchitis: No Hx Chronic Obstructive Pulmonary Disease (COPD): No Hx Emphysema: No Hx Pneumonia: No Hx Respiratory Aspiration: No Hx Respiratory Tract Infection: No Hx Sleep Apnea: No Hx Tuberculosis: No - NEUROLOGICAL Hx Neurological Disorder: No Hx Alzheimer's Disease: No HX Cerebrovascular Accident: No Hx Dementia: No Hx Dizziness: No Hx Meningitis: No Hx Migraine: No Hx Parkinson's Disease: No Hx Seizures: No Hx Transient Ischemic Attacks (TIA): No - HEENT Hx HEENT Problems: No Hx Blind: No Hx Cataracts: No Hx Deafness: No Hx Difficulty Chewing: No Hx Epistaxis: No Hx Glaucoma: No Hx Macular Degeneration: No - RENAL Hx Chronic Kidney Disease: No Hx Dialysis: No Hx Kidney Stones: No Hx Neurogenic Bladder: No Hx Pyelonephritis: No Hx Renal (Kidney) Cancer: No Hx Renal Failure: No Other/Comment: Prostate cancer - ENDOCRINE/METABOLIC Hx Endocrine Disorders: No Hx Adrenal Cancer: No Hx Diabetes Insipidus: No Hx Diabetes Mellitus Type 1: No Hx Diabetes Mellitus Type 2: No Hx Hyperthyroidism: No Hx Hypothyroidism: No Hx Systemic Lupus Erythematosus: No - HEMATOLOGICAL/ONCOLOGICAL Hx Blood Disorders: No Hx AIDS: No Hx Anemia: No Hx Cancer: No Hx Chemotherapy: No Hx Cirrhosis: No Hx Hemophilia: No Hx Hepatitis A: No Hx Hepatitis B: No Hx Hepatitis C: No Hx Metastesis: No Hx Shingles: No Hx Sickle Cell Disease: No Hx Unexplained Bleeding: No - INTEGUMENTARY Hx Dermatological Problems: No Hx Basil Cell: No Hx Eczema: No Hx Melanoma: No Hx Psoriasis: No Hx Squamous Cell: No - MUSCULOSKELETAL/RHEUMATOLOGICAL Hx Musculoskeletal Disorders: No - GASTROINTESTINAL Hx Gastrointestinal Disorders: No Hx Colostomy: No Hx Crohn's Disease: No Hx Diverticulitis: No Hx Gall Bladder Disease: No Hx Gastroesophageal Reflux: No Hx Ileostomy: No Hx Liver Failure: No Hx Pancreatitis: No HX Swallowing Problems: No - GENITOURINARY/GYNECOLOGICAL Hx Hematuria: No Hx Incontinence: No Hx Prostate Cancer: Yes Hx Prostate Problems: Yes Hx Sexually Transmitted Disorders: No Hx Urinary Tract Infection: No - PSYCHIATRIC Hx Emotional Abuse: No Hx Physical Abuse: No Hx Substance Use: No - SURGICAL HISTORY Other/Comment: Prostate surgery - ANESTHESIA Hx Anesthesia: Yes Hx Anesthesia Reactions: No Hx Malignant Hyperthermia: No Meds Allergies/Adverse Reactions: Allergies Allergy/AdvReac Type Severity Reaction Status Date / Time No Known Allergies Allergy Verified 03/13/18 10:28 - Medications Medications: Current Medications Ketorolac Tromethamine (Toradol) 30 mg IVP Q8 [facility] Last Admin: 04/06/18 22:01 Dose: 30 mg Pantoprazole Sodium (Protonix Ec Tab) 40 mg PO 0600 CORIN Tamsulosin HCl (Flomax) 0.4 mg PO DAILY [facility] Results - Vital Signs Recent Vital Signs: Last Vital Signs Temp 98.2 F 04/06/18 15:00 Pulse 96 H 04/06/18 15:00 Resp 18 04/06/18 15:00 BP 111/78 04/06/18 15:00 Pulse Ox 100 04/06/18 15:00 - Labs Result Diagrams: 04/06/18 09:40 04/06/18 09:40 Labs: Laboratory Results - last 24 hr 04/06/18 04/06/18 04/06/18 09:19 09:40 09:40 WBC 8.3 RBC 5.15 Hgb 14.9 D Hct 44.6 MCV 86.6 MCH 28.9 MCHC 33.4 RDW 14.5 Plt Count 278 MPV 9.1 Neut % (Auto) 39.0 L Lymph % (Auto) 48.7 H [place] % (Auto) 5.8 Eos % (Auto) 5.9 H Baso % (Auto) 0.6 Lymph # (Auto) 4.0 H [place] # (Auto) 0.5 Eos # (Auto) 0.5 Baso # (Auto) 0.05 Absolute Neuts (auto) 3.23 PT 13.5 H INR 1.19 APTT 32.4 Sodium 141 Potassium 4.1 Chloride 106 Carbon Dioxide 25 Anion Gap 15 BUN 16 Creatinine 1.0 Est GFR ( Amer) > 60 Est GFR (Non-Af Amer) > 60 Random Glucose 115 H Calcium 9.8 Magnesium 2.0 Total Bilirubin 0.5 AST 17 ALT 27 Alkaline Phosphatase 165 H D Total Protein 8.4 H Albumin 4.6 Globulin 3.9 Albumin/Globulin Ratio 1.2 Urine Color Urine Appearance Urine pH Ur Specific [place] Urine Protein Urine Glucose (UA) Urine Ketones Urine Blood Urine Nitrate Urine Bilirubin Urine Urobilinogen Ur Leukocyte Esterase Urine RBC Urine WBC Ur Epithelial Cells Urine Bacteria 04/06/18 11:18 WBC RBC Hgb Hct MCV MCH MCHC RDW Plt Count MPV Neut % (Auto) Lymph % (Auto) [place] % (Auto) Eos % (Auto) Baso % (Auto) Lymph # (Auto) [place] # (Auto) Eos # (Auto) Baso # (Auto) Absolute Neuts (auto) PT INR APTT Sodium Potassium Chloride Carbon Dioxide Anion Gap BUN Creatinine Est GFR ( Amer) Est GFR (Non-Af Amer) Random Glucose Calcium Magnesium Total Bilirubin AST ALT Alkaline Phosphatase Total Protein Albumin Globulin Albumin/Globulin Ratio Urine Color Yellow Urine Appearance Sl cloudy Urine pH 6.0 Ur Specific [place] >= 1.030 Urine Protein 100 H Urine Glucose (UA) Negative Urine Ketones Trace H Urine Blood Large H Urine Nitrate Positive H Urine Bilirubin Negative Urine Urobilinogen 0.2 Ur Leukocyte Esterase Moderate H Urine RBC Tntc H Urine WBC Tntc H Ur Epithelial Cells None Urine Bacteria Many Assessment & Plan - Assessment and Plan (Free Text) Assessment: IMP: URINARY RETENTION INDWELLING CYSTOSTOMY TUBE HX OF PROSTATE CANCER 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 CYSTOSTOMY TUBE REPLACED, #18 FR SUERO CATHETER REC CULTURE ANTIBIOTIC RX PSA CYSTOSTOMY TUBE TO LEG BAG OUTPATIENT F/U DISCUSSED W PT, ER STAFF, AND ATTENDING STAFF YS - Date & Time Date: 04/06/18 Time: 13:50
[2018-04-06 23:33] VITALS: RESP 18; BMI 23.7
[2018-04-06] MEDS ORDERED: Pneumococcal 23-Valent Vaccine IM ONE (23:34)
[2018-04-06] MEDS ORDERED: Influenza Vaccine 60 mcg/0.5 mL SYR (4YR UP) IM ONE (23:34)
[2018-04-07] MEDS ORDERED: Pantoprazole 40 mg EC Tab PO SCH (06:00)
[2018-04-07 07:18] LABS: BASO # 0.03 K/mm3 (0.0-2.0); BASO % 0.4 % (0.0-3.0); EOS # 0.4 (0.0-0.7); EOS % 5.7 % (1.5-5.0); HEMOGLOBIN 12.1 g/dL (14.0-18.0); LYMPH # 2.7 (1.2-3.4); LYMPH % 35.5 % (22.0-35.0); MEAN CORPUSCULAR HEMOGLOBIN 28.1 pg (25.0-35.0); MEAN CORPUSCULAR HGB CONC 32.4 g/dl (31.0-37.0); MEAN PLATELET VOLUME 8.7 fl (7.0-11.0); MONO # 0.9 (0.1-0.6); MONO % 11.5 % (1.0-6.0); RBC 4.3 10^6/uL (3.5-6.1); RED CELL DISTRIBUTION WIDTH 14.9 % (11.5-14.5); WHITE BLOOD COUNT 7.7 10^3/uL (4.5-11.0)
[2018-04-07 07:27] LABS: ALB/GLOB RATIO 1.1 (1.1-1.8); ALBUMIN 3.4 g/dL (3.0-4.8); ALT/SGPT 22 U/L (7-56); AST/SGOT 16 U/L (17-59); BLOOD UREA NITROGEN 16 mg/dL (7-21); CALCIUM 9.1 mg/dL (8.4-10.5); GFR NON-AFRICAN AMERICAN > 60
[2018-04-07 09:51] VITALS: BP 104/69; PULSE 104; TEMP 97.9; O2SAT 100
[2018-04-07] MEDS ORDERED: cefTRIAXone 1 gm 1 GM/100 ML BAG IVPB SCH (10:00)
--- NOTE | 2018-04-07 11:46 | CARD ---
APPROVED REPORT Date of service: 04/06/2018 EKG Measurement Heart [id number] <Conclusion> Sinus tachycardia Artifact V4,V5.
--- NOTE | 2018-04-07 15:11 | CP.PCM.DIS ---
Provider - Provider Date of Admission: 04/06/18 11:43 Attending physician: Leela Asencio MD Consults: 04/06/18 11:46 Physician Consult Stat Comment: Consulting Provider: Herb Garza Consulting Physician: Herb Garza Reason for Consult: decrease uop 04/06/18 23:34 Case Management Referral Routine Comment: Physician Instructions: Reason For Exam: Reason for Referral: Discharge Planning Time Spent in preparation of Discharge (in minutes): 45 Diagnosis - Discharge Diagnosis (1) Urinary retention Status: Chronic Priority: High (2) History of prostate cancer Status: Chronic Priority: High Hospital Course - Lab Results Lab Results: Micro Results 04/06/18 11:18 Urine,Clean Catch Urine Culture - Preliminary Gram Negative Oscar Most Recent Lab Values WBC 7.7 10^3/uL (4.5-11.0) 04/07/18 07:00 RBC 4.30 10^6/uL (3.5-6.1) 04/07/18 07:00 Hgb 12.1 g/dL (14.0-18.0) L D 04/07/18 07:00 Hct 37.4 % (42.0-52.0) L 04/07/18 07:00 MCV 87.0 fl (80.0-105.0) 04/07/18 07:00 MCH 28.1 pg (25.0-35.0) 04/07/18 07:00 MCHC 32.4 g/dl (31.0-37.0) 04/07/18 07:00 RDW 14.9 % (11.5-14.5) H 04/07/18 07:00 Plt Count 252 10^3/uL (120.0-450.0) 04/07/18 07:00 MPV 8.7 fl (7.0-11.0) 04/07/18 07:00 Neut % (Auto) 46.9 % (50.0-68.0) L 04/07/18 07:00 Lymph % (Auto) 35.5 % (22.0-35.0) H 04/07/18 07:00 [place] % (Auto) 11.5 % (1.0-6.0) H 04/07/18 07:00 Eos % (Auto) 5.7 % (1.5-5.0) H 04/07/18 07:00 Baso % (Auto) 0.4 % (0.0-3.0) 04/07/18 07:00 Lymph # (Auto) 2.7 (1.2-3.4) 04/07/18 07:00 [place] # (Auto) 0.9 (0.1-0.6) H 04/07/18 07:00 Eos # (Auto) 0.4 (0.0-0.7) 04/07/18 07:00 Baso # (Auto) 0.03 K/mm3 (0.0-2.0) 04/07/18 07:00 Absolute Neuts (auto) 3.60 (1.4-6.5) 04/07/18 07:00 PT 13.5 SECONDS (9.4-12.5) H 04/06/18 09:19 INR 1.19 04/06/18 09:19 APTT 32.4 Seconds (26.9-38.3) 04/06/18 09:19 Sodium 139 mmol/L (132-148) 04/07/18 07:00 Potassium 4.3 mmol/L (3.6-5.0) 04/07/18 07:00 Chloride 110 mmol/L (98-107) H 04/07/18 07:00 Carbon Dioxide 28 mmol/L (21-33) 04/07/18 07:00 Anion Gap 5 (10-20) L 04/07/18 07:00 BUN 16 mg/dL (7-21) 04/07/18 07:00 Creatinine 1.0 mg/dl (0.8-1.5) 04/07/18 07:00 Est GFR ( Amer) > 60 04/07/18 07:00 Est GFR (Non-Af Amer) > 60 04/07/18 07:00 Random Glucose 99 mg/dL (70-110) 04/07/18 07:00 Calcium 9.1 mg/dL (8.4-10.5) 04/07/18 07:00 Magnesium 2.0 mg/dL (1.7-2.2) 04/06/18 09:40 Total Bilirubin 0.6 mg/dL (0.2-1.3) 04/07/18 07:00 AST 16 U/L (17-59) L 04/07/18 07:00 ALT 22 U/L (7-56) 04/07/18 07:00 Alkaline Phosphatase 121 U/L (38-126) 04/07/18 07:00 Total Protein 6.7 g/dL (5.8-8.3) 04/07/18 07:00 Albumin 3.4 g/dL (3.0-4.8) 04/07/18 07:00 Globulin 3.2 gm/dL 04/07/18 07:00 Albumin/Globulin Ratio 1.1 (1.1-1.8) 04/07/18 07:00 Urine Color Yellow (YELLOW) 04/06/18 11:18 Urine Appearance Sl cloudy (CLEAR) 04/06/18 11:18 Urine pH 6.0 (4.7-8.0) 04/06/18 11:18 Ur Specific [place] >= 1.030 (1.005-1.035) 04/06/18 11:18 Urine Protein 100 mg/dL (<30 mg/dL) H 04/06/18 11:18 Urine Glucose (UA) Negative mg/dL (NEGATIVE) 04/06/18 11:18 Urine Ketones Trace mg/dL (NEGATIVE) H 04/06/18 11:18 Urine Blood Large (NEGATIVE) H 04/06/18 11:18 Urine Nitrate Positive (NEGATIVE) H 04/06/18 11:18 Urine Bilirubin Negative (NEGATIVE) 04/06/18 11:18 Urine Urobilinogen 0.2 E.U./dL (<1 E.U./dL) 04/06/18 11:18 Ur Leukocyte Esterase Moderate [place]/uL (NEGATIVE) H 04/06/18 11:18 Urine RBC Tntc /hpf (0-2) H 04/06/18 11:18 Urine WBC Tntc /hpf (0-6) H 04/06/18 11:18 Ur Epithelial Cells None /hpf (0-5) 04/06/18 11:18 Urine Bacteria Many /hpf (NONE) 04/06/18 11:18 - Hospital Course Hospital Course: Hospitalization Pt is a 47 yo male with PMH of prostate cancer s/p robotic prostatectomy who presents to ED complaining of urinary retention that began last night at 7pm. Pt states the pain and urinary urgency have gotten worse which prompted him to to present to the ED. He describes the pain as a heaviness and fullness in the suprapubic region, testes, and penis. Pt states he took Flomax .4mg last night with no relief. Laying supine and sitting down make the pain worse. A suprapubic catheter was placed 03/09/[address] Esqiuvel. Nurse noted a 25ml urine output after the suprapubic catheter was flushed. Discharge Seen in the hospital for acute urinary obstruction. Urinary catheter was fixed by the Urologist (Dr. Garza), and is now draining well. Urine may be infected, so being started on Ciprofloxacin (an antibiotic). Please call Dr. Garza's office to follow up on the results of your Urine Culture. Please follow up Dr. Garza within 3-5 days, PLEASE CALL HIS OFFICE TODAY OR TOMORROW. Dr. Garza has recommended a medication for bladder called Oxybutinin. Please follow up with your primary care doctor (Dr. Phipps) in 3-5 days. - Date & Time of H&P Date of H&P: 04/07/18 Time of H&P: 07:00 Discharge Exam - Head Exam Head Exam: ATRAUMATIC, NORMOCEPHALIC - Eye Exam Eye Exam: EOMI - ENT Exam ENT Exam: Mucous Membranes Moist - Neck Exam Neck exam: Full Rom - Respiratory Exam Respiratory Exam: absent: Accessory Muscle Use, Respiratory Distress - Cardiovascular Exam Cardiovascular Exam: REGULAR RHYTHM, RRR, +S1, +S2. absent: Diastolic murmur, Systolic Murmur - GI/Abdominal Exam GI & Abdominal Exam: Normal Bowel Sounds, Soft. absent: Tenderness Additional comments: suprapubic catheter in place, draining urine working well - Extremities Exam Extremities exam: full ROM - Neurological Exam Neurological exam: Alert, Oriented x3 - Psychiatric Exam Psychiatric exam: Normal Affect, Normal Mood - Skin Skin Exam: Dry, Normal Color, Warm Discharge Plan - Discharge Medications Prescriptions: Ciprofloxacin [Cipro] 500 mg PO Q12 #14 tab Oxybutynin XL [Ditropan XL] 5 mg PO DAILY #14 ter - Follow Up Plan Condition: GOOD Disposition: HOME/ ROUTINE Instructions: Suprapubic Cystostomy, Urinary Retention (DC) Additional Instructions: 1. You were seen in the hospital for acute urinary obstruction. Your urinary catheter was fixed by the Urologist (Dr. Garza), and is now draining well. 2. Your urine may be infected, so you are being started on Ciprofloxacin (an antibiotic). Please fill the prescription and take as prescribed. Please call Dr. Garza's office to follow up on the results of your Urine Culture. 3. Please follow up Dr. Garza within 3-5 days, PLEASE CALL HIS OFFICE TODAY OR TOMORROW. 4. Dr. Garza has recommended you start a medication for your bladder called Oxybutinin. A script has been provided for 14 days of medication. Please follow up with Dr. Garza or your Primary Medical Doctor (PMD) for any further refills. 5. Please follow up with your primary care doctor (Dr. Phipps) in 3-5 days. 6. Please resume all home medications as previously prescribed. If you experience new concerning or worsening symptoms, please present to the nearest Emergency Department. Referrals: Kobe Phipps MD [Family Provider] - Herb Garza MD [Staff Provider] -
--- NOTE | 2018-04-11 10:51 | CON ---
DATE: 04/10/2018 UROLOGY CONSULTATION Urology consultation is requested by Dr. Menon and Dr. Seda Mayers. Urology consultation is by Dr. Cony Garza. REASON FOR CONSULTATION: Urinary retention. Suprapubic pain. HISTORY OF PRESENT ILLNESS: The patient is in otherwise fair health. The patient presents with marked lower abdominal pain. The patient has history of prostate cancer. In 2018, the patient underwent a robotic-assisted laparoscopic prostatectomy by Dr. Dominguez at [facility]. The patient subsequently developed bladder neck contracture. The patient underwent insertion of a suprapubic cystostomy tube approximately one month ago. The patient was doing well until yesterday. He developed progressive lower abdominal pain. He reports decreased output via the cystostomy tube. There has been no fever. No hematuria. The patient has fair appetite. No nausea or vomiting. The patient had severe pain in the emergency room at [facility] requiring parenteral analgesics. The patient had attempted irrigation of a cystostomy tube as well as attempted insertion of a Morrissey catheter per urethra. However, he persisted with the pain. There has been fair drainage via the cystostomy tube. There has been incomplete emptying of his bladder as documented with bladder scan with residual approximately 200 mL. PHYSICAL EXAMINATION: GENERAL: The patient is a well-developed, well-nourished middle-aged male. The patient is awake and alert. ABDOMEN: Soft, nondistended. There is suprapubic tenderness. The cystostomy tube is in place. GENITALIA: Without inflammation. LABORATORY DATA: Reviewed. Hematocrit 37, creatinine 1. IMPRESSION: Cystostomy tube in placed. History of bladder neck contracture. History of prostate carcinoma. RECOMMENDATION AND PLAN: I changed the cystostomy tube. I removed the 12-English catheter. I inserted an 18-English catheter. There was prompt return of cloudy yellow urine approximately 250 mL. The patient had immediate relief of his pain. I applied sterile dressing. I recommend connecting the cystostomy tube changes. I will obtain urine culture. Antibiotics IV. Monitor PSA. Outpatient followup. I discussed the findings with the patient as well as with the nursing staff as well as with the attending staff. Thank you for recommending the patient for Urology consultation. Cony aGrza MD [facility] # [id number]
== END 2018-04-07 18:05 | disposition home or self-care (01) ==
LOC: ED 08:45 → INTOOBSV 11:43 → ERH 11:43 → 5RNO 15:01
PROVIDERS: ADMIT Internal Medicine; ATTEND Internal Medicine
DX: N13.9 Obstructive and reflux uropathy, unspecified (principal); N39.0 Urinary tract infection, site not specified; R33.9 Retention of urine, unspecified; Z85.46 Personal history of malignant neoplasm of prostate; Z90.79 Acquired absence of other genital organ(s); Z80.42 Family history of malignant neoplasm of prostate
CPT/HCPCS: 36415; 71045; 80053; 81001; 83735; 85025; 85610; 85730; 87086; 87181; 93005; 96374; 96375; 96376; 99285; G0378; J0696; J1200; J1885; J2270; J7030

== ENCOUNTER 2018-05-05 10:59 | Day surgery (SDC) | payer MEDICARE ==
[2018-05-04 15:03] VITALS: BMI 25.7
[2018-05-05 11:38] VITALS: TEMP 98.3
[2018-05-05] MEDS ORDERED: Iohexol 240 (50 ml) ONE (12:28)
[2018-05-05] MEDS ORDERED: cefTRIAXone (Rocephin) 1 gm Inj ONE (12:28)
[2018-05-05] MEDS ORDERED: Oxycodone/Acetaminophen 5/325 mg Tab PO PRN (12:52)
[2018-05-05] MEDS ORDERED: Propofol 10 mg/ml Inj (20 ML) ONE (12:54)
[2018-05-05] MEDS ORDERED: Midazolam 2 MG/2 ML VIAL ONE (12:54)
[2018-05-05] MEDS: HYDROmorphone 1 mg/ml ISec IVP PRN ×3 (13:39→14:09)
[2018-05-05] MEDS ORDERED: Lactated Ringer's 1,000 ML IV SCH (13:45)
[2018-05-05] MEDS ORDERED: HYDROmorphone 1 mg/ml ISec ONE ×2 (13:50→14:15)
[2018-05-05 14:32] VITALS: BP 128/86; PULSE 82; RESP 15; O2SAT 96
[2018-05-05] MEDS ORDERED: Gentamicin 160 MG in Sodium Chloride 0.9% 100 ML IVPB SCH (15:00)
--- NOTE | 2018-05-05 15:47 | RAD ---
Date of service: 05/05/2018 PROCEDURE: Cystogram HISTORY: HEMATURIA COMPARISON: TECHNIQUE: 11.7 sec of fluoro time. 2.63 mGy cumulative dose. Twenty-one images were submitted FINDINGS: There is a large caliber balloon tipped catheter in the bladder. There is opacification of the bladder. There is a smaller caliber suprapubic catheter. IMPRESSION: As above
--- NOTE | 2018-05-06 05:59 | HP ---
DATE OF EXAM: 05/05/2018 REASON FOR ADMISSION: Treatment of bladder neck contracture. HISTORY OF PRESENT ILLNESS: Mr. Hurt is a very pleasant 47-year-old, I should add him being very pleasant, very appreciated gentleman who I have been following. He initially had a radical prostatectomy done robotically with Dr. Dominguez. The patient is a 47-year-old, he has had multiple medical issues. From a urology standpoint, he had a robotic prostatectomy back in 11/2017. He has had a bladder neck contracture and multiple issues after we treated. From the urology standpoint, he still has a bladder neck contracture. He has not followed my recommendations, which was clear and then we spent a long time together with the patient. I recommended for the patient or his to do intermittent catheterization, to do it daily because he has a very thick scar at the bladder neck. For some reason, they were not able to do that. My next recommendations, which is even a better recommendation is that he goes to an academic center and he goes to a place that is specifically geared towards assisting him for repair of the bladder neck. You can see the chart for further details. They had not gotten down to zero yet. There are no new concerns. Meanwhile, I last saw him in 03/2018. Specifically, we did a suprapubic catheter. Since then, we have changed it. Last one was changed actually by Dr. Cony Garza. Now, he has 18-Romansh suprapubic catheter in place. It is draining well. It appears that he wants the bladder neck open and that he requested. I have discussed the options and he requested and we will get it today, open up the bladder neck, and I am also going to take biopsy to see if there is any recurrent cancer at the bladder neck site. If there are, see the plans as listed below, but I have discussed with him that he needs more treatment at 47-year-old whether with radiation or whether he needs a surgical procedure. This week, he determined. My real recommendation is that the possibilities are going to a cancer center and/or to an area for reconstruction. My concerns are recurrent scar tissue. My concerns are recurrent cancer and my concerns are urinary incontinence. I do want to mention that he has not been sexually active. Although, it seems like he does get sudden erection, but this is really been not on his play and I am concerned of it now. Today, coming in for a cysto and incision of the bladder neck. I explained to him the risks, benefits, alternatives, see below about the risk of incontinence. But more importantly, I am going to treat him today, I am going to continue to try to help him, but I definitely emphasized that the patient, both in writing and written until all are covered, alternatives and recommendations. PAST MEDICAL AND SURGICAL HISTORY: As listed on the chart with no other change. REVIEW OF SYSTEMS: Noncontributory. SOCIAL HISTORY: He lives with his . Currently, he is not working. MEDICATIONS: See the chart. ALLERGIES: NONE. PHYSICAL EXAMINATION: GENERAL: Well-nourished male, he is a fairly big man, tall, muscular man. VITAL SIGNS: Within normal limits. NECK: No cervical or axillary lymphadenopathy detected. LUNGS: Clear. HEART: S1 and S2. ABDOMEN: Soft. The suprapubic site is clean, dry. The suprapubic catheter is in place, draining well. GENITOURINARY: He has a normal male phallus without discharge. No testicular masses appreciated. RECTAL: Really relatively empty. No major masses are felt. NEUROLOGIC AND EXTREMITIES: All are within normal limits. LABORATORY DATA: See chart. PSA noted. DIAGNOSES: 1. Recurrent episode of urinary retention secondary to a bladder neck contracture. 2. Hematuria. 3. Retention. 4. Prostate cancer. ASSESSMENT AND PLAN: In summary, he is a very pleasant gentleman with above history. We discussed with the patient at length. He currently has an indwelling suprapubic. He is looking to get that out as quickly as possible. I told him I am not taking that out today, for sure not. My recommendations today to change the suprapubic and/or to leave the Morrissey in the penis. He said he cannot take the Morrissey in the penis anymore. What we are going to do is we are going to do an incision of the bladder neck. We are going to take biopsy samples even, if there is a bleeding, we are going to do our best not to fulgurate in an effort to try to help the healing process. I am going to really try to encourage the patient's to try consider CIC. I think he will really benefit from that. So the plan for now is as follows. 1. We are going to provide antibiotic prophylaxis. 2. We are going to make an incision of the bladder neck. 3. We are going to take a biopsy sample. 4. We are going to do a cystogram. 5. We will change the suprapubic catheter. Further plans will follow. ADDENDUM: See the operative note. See the post op note. Procedure went as planned. He got a very thick scar, we sent some tissue. We will see the results. The patient . Serjio Garza MD
--- NOTE | 2018-05-06 08:25 | OP ---
PROCEDURE DATE: 05/05/2018 PREOPERATIVE DIAGNOSES: Bladder neck contracture, urinary retention, prostate cancer, hematuria. POSTOPERATIVE DIAGNOSES: Bladder neck contracture, urinary retention, prostate cancer, hematuria. PROCEDURES: Cystoscopy, an incision of bladder neck, a bladder neck biopsy fulguration, a change of a cystoscopy tube, cystogram, and insertion of a Morrissey catheter. COMPLICATIONS: There were no complications. BLOOD LOSS: Less than 20 mL. UROLOGY OPERATIVE FINDINGS: Anterior urethra is normal. No strictures. At the bladder neck, it is a very thick wall. It is just scar tissue. Scar may be even becoming cancer, but there is no opening. I viewed the picture on the chart and also I provided the patient with pictures as well. Once we made the incision, we were able to get into the bladder. We did biopsies as well. Within the urinary bladder, there were no abnormalities. I can identify the cystoscopy tube. See the procedure note. I first changed the tube and inflated the balloon and I made sure that we could create a place for it and there were no complications. During the procedure, I left him with the Morrissey catheter, coude, 22-Lao. He was wide open at the bladder neck at the time of the procedure, but we did take out the 22-Lao before the patient was discharged home. DESCRIPTION OF PROCEDURE: After obtaining informed consent, the patient was placed on the table. Routine monitor was placed. Time-out was called to confirm the patient and positioning. Antibiotic prophylaxis was used. First thing I did was removed the old Morrissey suprapubically and inserted a new one. We now placed the patient in lithotomy position and held him without any difficulty. We now placed him in the lithotomy position. We prepped him again in sterile fashion. We introduced cystoscope via urethra. We know he has a bladder neck. We used directly into the urethrotome, and we identified just a wall of scar tissue. The procedure was done with fluoroscopic imaging. At this point, since I have the luxury of having a bladder that can be emptied, we then cut with a cold knife even though we did not have the safety wire. Once we made the initial cut, it cut actually reasonably well, it is not overly thick. It is just a wall of tissue. Once we did this, we put the 4-Lao olive-tip catheter. Then, we cut more to make it wide open. I explained to the patient there is a great risk of urinary continence. So once we did this, we cut it down to make it as wide open as possible. Once we converted to a urethrotome, we converted back to the cystoscope and we did a biopsy of the bladder neck. We sent off the tissue to rule out any malignancy. Once within the bladder, I was inspecting the bladder, I identified the double-J suprapubic catheter. We have a new pubic catheter and it is draining well. The procedure continues. We did a cystogram to confirm our positioning. I left the Morrissey catheter via the urethra and the suprapubic catheter. We confirmed our positioning. We applied a sterile dry dressing. The patient tolerated well without complications. I wanted to mention I did a rectal exam. It was really relatively normal then. No abnormalities appreciated. The patient tolerated this well without complications. At this point, I just wanted to mention very clearly my best recommendations for the patient at this point is to return to his original doctor which is why I suggested begin with . I have explained to the patient that the other possibility are to go to a cancer only center or to go to a place to get reconstruction. I think he would be best served by that. The other possibility is not to do anything further and just see what the pathology shows, but more importantly do nothing and just to have the patient perform intermittent catheterization. That would serve the patient very well and I am planning to offer that as a definite option for the patient. Further plans will follow. Serjio Garza MD
== END 2018-05-05 17:00 | disposition home or self-care (01) ==
LOC: SDS 10:59
PROVIDERS: ATTEND Urology
DX: N32.0 Bladder-neck obstruction (principal); R31.9 Hematuria, unspecified; R33.9 Retention of urine, unspecified; Z85.46 Personal history of malignant neoplasm of prostate; Z90.79 Acquired absence of other genital organ(s)
CPT/HCPCS: 51600; 51705; 52204; 74430; 88305; A4358; C1758; J0696; J1170; J1580; J2250; J2704; J3010; J7120 ×2; Q9966